=== PATIENT | male | born 1980 | race American Indian/Alaskan Native ===

== ENCOUNTER 2018-05-04 07:12 | Emergency (ER) | payer BC, OTHER ==
[~2018-05-04] VITALS: Ht 177.8 cm; Wt 131.5 kg
--- OUTSIDE RECORDS SUMMARY | ~2018-05-04 | XMS | Clinical Summary ---
Demographics + + + | Address | [address] | | | [place] [address] | + + + | Home Phone | | + + + | Preferred Language | Unknown | + + + | Marital Status | Single | + + + | Uatsdin Affiliation | Unknown | + + + | Race | Unknown | + + + | Ethnic Group | Unknown | + + + Author + + + | Author | [facility] | + + + | Organization | [facility] | + + + | Address | Unknown | + + + | Phone | Unavailable | + + + Support + + + + + | Name | Relationship | Address | Phone | + + + + + | Kalpana Mccartney | ECON | [address] | | | | | [place] | | | | | [address] | | + + + + + Care Team Providers + +------+ + | Care Transportation Department Supervisor Name | Role | Phone | + +------+ + | Medicine, [place] | PP | Unavailable | | Family | | | + +------+ + Allergies Not on File Current Medications Not on file Active Problems Not on file Social History + +-------+ +--------+------+ | Tobacco [...] on file | | + + + Plan of Treatment Not on file Results Not on filefrom Last 3 Months"
--- OUTSIDE RECORDS SUMMARY | ~2018-05-04 | XMS | Clinical Summary ---
Demographics + + + | Address | [address] | | | [place] [address] | + + + | Home Phone | | + + + | Preferred Language | Unknown | + + + | Marital Status | Single | + + + | Baptism Affiliation | Unknown | + + + | Race | Unknown | + + + | Ethnic Group | Unknown | + + + Author + + + | Author | [facility] | | | and [place] | + + + | Organization | [facility] | | | and [place] | + + + | Address | Unknown | + + + | Phone | Unavailable | + + + Support + + +---------+ + | Name | Relationship | Address | Phone | + + +---------+ + | MARISELA DONAHUE | ECON | Unknown | | + + +---------+ + Care Team Providers + +------+ + | Care Manager Psychiatry Name | Role | Phone | + +------+ + | Seng Knowles PA-C | PP | | + +------+ + Allergies No Known Allergies Current Medications + + +-------+---------+------+------+-------+ | Prescription | Sig. | Disp. | Refills | Star | End | Statu | | | | | | t | Date | s | | | | | | Date | | | + + +-------+---------+------+------+-------+ | naproxen | Take 500 mg by mouth | | | | | Activ | | (NAPROSYN) 500 mg | 2 times daily (with | | | | | e | | tablet | breakfast & | | | | | | | | dinner). | | | | | | + + +-------+---------+------+------+-------+ | metFORMIN | Take 500 mg by mouth | | | | | Activ | | (GLUCOPHAGE) 500 mg | daily (with | | | | | e | | tablet | breakfast). | | | | | | + + +-------+---------+------+------+-------+ | UNABLE TO FIND | Med Name: Resmed | | | | | Activ | | | AirSense 10 autoset | | | | | e | | | CPAP: 6-20cm while | | | | | | | | sleeping. | | | | | | + + +-------+---------+------+------+-------+ Active Problems + + + | Problem | Noted Date | + + + | JEANCARLOS (obstructive sleep apnea) | | + + + | Obesity | | + + + | Type 2 diabetes mellitus (HCC) | | + + + Family History [...] | | | + +---+---+---+ + + + | Sex Assigned at | Date Recorded | | | | + + + | Not on file | | + + + Last Filed Vital Signs + + + + | Vital Sign | Reading | Time Taken | + + + + | Blood Pressure | 144/70 | 07/23/20161502 PST | + + + + | Pulse | 90 | 07/23/20161502 PST | + + + + | Temperature | - | - | + + + + | Respiratory Rate | 16 | 07/23/20161502 PST | + + + + | Oxygen Saturation | 97% | 07/23/20161502 PST | + + + + | Inhaled Oxygen | - | - | | Concentration | | | + + + + | Weight | 139.1 kg (306 lb 9.6 | 07/23/2016 1503 PST | | | oz) | | + + + + | Height | 177.8 cm (5' 10") | 05/21/2016 1325 PST | + + + + | Body Mass Index | 43.99 | 07/23/2016 1503 PST | + + + + Plan of Treatment + + + + + | Health Maintenance | Due Date | Last Done | Comments | + + + + + | Diabetic Eye Exam | | | | | | 8 | | | + + + + + | Diabetic Foot Exam | | | | | | 8 | | | + + + + + | Hemoglobin A1c Q3 | | | | | Months | 8 | | | + + + + + | Vaccine: | | | | | Dtap/Tdap/Td (1 - | 9 | | | | Tdap) | | | | + + + + + | Vaccine: | | | | | Pneumococcal 19-64 | 9 | | | | (PPSV23 only) Medium | | | | | Risk (1 of 1 - | | | | | PPSV23) | | | | + + + + + | Microalbumin | | | | | Screening | 5 | | | + + + + + | Vaccine: Influenza | | | | | (#1) | 8 | | | + + + + + Results Not on filefrom Last 3 Months Insurance + +--------+ +--------+-------+---------+ | Payer | Benefi | Subscriber | Type | Phone | Address | | | t Plan | ID | | | | | | / | | | | | | | Group | | | | | + +--------+ +--------+-------+---------+ | BCBS | BCBS | [id number] | PPO | | | | | [place] | | | | | | | L FEP | | | | | + +--------+ +--------+-------+---------+ | HEALTH | IHS | [id number] | Indemn | | | | SERVICE | YELLOW | | ity | | | | | HAWK | | | | | + +--------+ +--------+-------+---------+ + +--------+ +--------+ + + | Guarantor Name | Accoun | Relation to | Date | Phone | Billing Address | | | t Type | Patient | of | | | | | | | | | | + +--------+ +--------+ + + | JEOVANNY BASURTO | Person | Self | [birth year] | Home: | [address] | | | al/Fam | | 1980 | [phone] | [place] [address] | | | mat | | | [phone] | | + +--------+ +--------+ + +
--- OUTSIDE RECORDS SUMMARY | ~2018-05-04 | XMS | Clinical Summary ---
Demographics + + + | Address | [address] | | | [place] [address] | + + + | Home Phone | | + + + | Preferred Language | Unknown | + + + | Marital Status | Single | + + + | Scientologist Affiliation | Unknown | + + + | Race | Unknown | + + + | Ethnic Group | Unknown | + + + Author + + + | Author | [facility] | | | and [place] | + + + | Organization | [facility] | | | and [...] Team Providers + +------+ + | Care Life Skills Trainer Name | Role | Phone | + [...] +--------+ +--------+-------+---------+ | BCBS | BCBS | [id number] | PPO | | | | | [place] | | | | | | | L FEP | | | | | + +--------+ +--------+-------+---------+ | HEALTH | IHS | [id number] | Indemn | | | | SERVICE [...] | Self | [birth year] | Home: | [address] | | | al/Fam | | 1980 | [phone] | [place] [address] | | | mat | | | [phone] | | + +--------+ +--------+ + +
--- OUTSIDE RECORDS SUMMARY | ~2018-05-04 | XMS | Clinical Summary ---
Demographics + + + | Address | [address] | | | [place] [address] | + + + | Home Phone | | + + + | Preferred Language | Unknown | + + + | Marital Status | Single | + + + | Anabaptism Affiliation | Unknown | + + + | Race | Unknown | + + + | Ethnic Group | Unknown | + + + Author + + + | Author | [facility] | + + + | Organization | [facility] | + + + | Address | Unknown | + + + | Phone | Unavailable | + + + Support + + + + + | Name | Relationship | Address | Phone | + + + + + | Kalpana Mccartney | ECON | [address] | | | | | [place] | | | | | [address] | | + + + + + Care Team Providers + +------+ + | Care Headlight Adjuster Name | Role | Phone | + +------+ + | Medicine, [place] | PP | Unavailable | | Family [...]
[~2018-05-04 07:12] MED LIST: ACETAMINOPHEN325 M1; AMOXICILLIN500 MG; CLINDAMYCIN HC300 MG PO; CRUTCH1 EACH; GLIPIZIDE XL5 MG PO; IBUPROFEN400 MG; MACROBID 100 M100 MG PO; METRONIDAZOLE500 MG; NAPROXEN500 MG PO; NORCO 5-325 TA1 EACH; PERCOCET 5-3251 EACH PO; VICODIN 5-3001 EACH PO
[2018-05-04] MEDS ORDERED: METHOCARBAMOL500 MG PO (10:33)
[2018-05-04] MEDS ORDERED: PREDNISONE20 MG PO (10:33)
== END 2018-05-04 10:45 | disposition home or self-care (01) ==
LOC: ED 07:12
DX: M54.41 Lumbago with sciatica, right side (principal); E11.9 Type 2 diabetes mellitus without complications; Z79.899 Other long term (current) drug therapy
CPT/HCPCS: 96372; 99283; J1885; J7512

== ENCOUNTER 2019-08-24 16:22 | Emergency (ER) | payer BC, OTHER ==
[~2019-08-24] VITALS: Ht 177.8 cm; Wt 119.3 kg
[~2019-08-24 16:22] MED LIST changes: +METHOCARBAMOL500 MG PO; +PREDNISONE20 MG PO
[2019-08-24] MEDS ORDERED: LOSARTAN POTASS50 MG PO (16:41)
[2019-08-24] MEDS ORDERED: FENOFIBRATE54 MG PO (16:41)
[2019-08-24] MEDS ORDERED: IBUPROFEN600 MG PO (16:41)
[2019-08-24] MEDS ORDERED: METFORMIN HCL500 M1 PO (16:41)
[2019-08-24] MEDS ORDERED: ONGLYZA5 MG PO (16:42)
[2019-08-24] MEDS ORDERED: COLCHICINE0.6 M1 PO (17:24)
== END 2019-08-24 17:57 | disposition home or self-care (01) ==
LOC: ED 16:22
DX: S96.911A Strain of unspecified muscle and tendon at ankle and foot level, right foot, initial encounter (principal); X50.9XXA Other and unspecified overexertion or strenuous movements or postures, initial encounter; E11.9 Type 2 diabetes mellitus without complications; Z79.899 Other long term (current) drug therapy; Z79.84 Long term (current) use of oral hypoglycemic drugs
CPT/HCPCS: 99283; J1100

== ENCOUNTER 2020-01-05 18:40 | Inpatient (IN) | payer BC, OTHER ==
[~2020-01-05] VITALS: Ht 177.8 cm; Wt 115.6 kg
--- OUTSIDE RECORDS SUMMARY | ~2020-01-05 | XMS | Encounter Summary ---
Demographics + + + | Address | [address] | | | [place] [address] | + + + | Home Phone | | + + + | Preferred Language | Unknown | + + + | Marital Status | Single | + + + | Evangelical Affiliation | Unknown | + + + | Race | Unknown | + + + | Ethnic Group | Unknown | + + + Author + + + | Author | [facility] | | | and [place] | + + + | Organization | [facility] | | | and [place] | + + + | Address | Unknown | + + + | Phone | Unavailable | + + + Support + + +---------+ + | Name | Relationship | Address | Phone | + + +---------+ + | Kalpana Mccartney | ECON | Unknown | | + + +---------+ + Care Team Providers + +------+ + | Care Screener Operator Name | Role | Phone | + +------+ + | Seng Knowles PA-C | PCP | | + +------+ + Reason for Visit + + + | Reason | Comments | + + + | CPAP Follow Up | Sleep Resource | + + + Encounter Details +--------+ + + + + | Date | Type | Department | Care Team | Description | +--------+ + + + + | 05/21/ | Clinical | [facility] | Maximo Murguia | JEANCARLOS (obstructive | | 2016 | Support | SLEEP DISORDER [address] | MD [address] | sleep apnea) | | | | [address] [place] | [address] [place] | (Primary Dx) | | | | [place] [address] | [place] [address] | | | | | [phone] | [phone] | | | | | | | | +--------+ + + + + Social History + +-------+ +--------+------+ | Tobacco Use | Types | Packs/Day | Years | Date | | | | | Used | | + +-------+ +--------+------+ | Never Smoker | | | | | + +-------+ +--------+------+ + +---+---+---+ | Smokeless Tobacco: | | | | | Never Used | | | | + +---+---+---+ + + +---------+ + | Alcohol Use | Drinks/Week | oz/Week | Comments | + + +---------+ + | Not Asked | 0 Standard drinks | 0.0 | once a week 6 drinks | | | or equivalent | | | + + +---------+ + + + + | Sex Assigned at | Date Recorded | | | | + + + | Not on file | | + + + documented as of this encounter Last Filed Vital Signs + + + + + | Vital Sign | Reading | Time Taken | Comments | + + + + + | Blood Pressure | 118/70 | 05/21/2016 1:25 PM | | | | | PST | | + + + + + | Pulse | 93 | 05/21/2016 1:25 PM | | | | | PST | | + + + + + | Temperature | - | - | | + + + + + | Respiratory Rate | 14 | 05/21/2016 1:25 PM | | | | | PST | | + + + + + | Oxygen Saturation | 96% | 05/21/2016 1:25 PM | | | | | PST | | + + + + + | Inhaled Oxygen | - | - | | | Concentration | | | | + + + + + | Weight | 139.4 kg (307 lb 6.4 | 05/21/2016 1:25 PM | | | | oz) | PST | | + + + + + | Height | 177.8 cm (5' 10") | 05/21/2016 1:25 PM | | | | | PST | | + + + + + | Body Mass Index | 44.11 | 05/21/2016 1:25 PM | | | | | PST | | + + + + + documented in this encounter Progress Notes Johny Wright rollApp Tech - 05/21/2016 1:47 PM PSTFormatting of this note migh t be different from the original. Clinical Sleep Support Visit Patient:Allen Colby Date of :1980 Encounter Date: 05/20/2016 Reason for visit: Chief Complaint Patient presents with CPAP Follow Up Sleep Resource The patient was last seen in our clinic on 05/01/2016 referred by Satnam Knowles PA-C to our cli mark and seen by Dr. Murguia. PAP was ordered on 05/01/2016 from [facility] and patient has been wear ing for 20 out of 20 nights. Patient is wearing the ResMed S-10 auto PAP with settings of 6- 20, wearing the F-10 Full Face mask. ~ Vital signs were: BP 118/70 mmHg | Pulse 93 | Resp 14 | Ht 1.778 m (5' 10") | Wt 139.436 kg (307 lb 6.4 oz) | BMI 44.11 kg/m2 | SpO2 96% ~ Patient is doing good, complaint of mask seal, but fit check showed a good fit and I adju sted some. Good compliance and motivation, he admitted to sleeping less and feeling better. ~ Overall leak is 13.2 ~ Compliance >4 hours =90% with AHI of 0.5 ~ Average daily of 7:24 Original date of study was on 04/03/2016 that showed and AHI of 9.9 with a O2 Rony of 86% w ith 32.3 minutes < 90%. Sleep hygiene reviewed with the patient included - Not sleeping with the TV on and caffeine use. Plan for continuous PAP use: 1. Wear PAP any time you are sleeping 2. Continue with PAP indefinitely 3. Follow up with Hong MACIAS in 3 weeks with equipment Johny Wright RPSGT CSE doc umented in this encounter Plan of Treatment Not on filedocumented as of this encounter Visit Diagnoses + + | Diagnosis | + + | JEANCARLOS (obstructive sleep apnea) - Primary Obstructive sleep apnea (adult) (pediatric) | + + documented in this encounter
--- OUTSIDE RECORDS SUMMARY | ~2020-01-05 | XMS | Encounter Summary ---
Demographics + + + | Address | [address] | | | [place] [address] | + + + | Home Phone | | + + + | Preferred Language | Unknown | + + + | Marital Status | Single | + + + | Shinto Affiliation | Unknown | + + + | Race | Unknown | + + + | Ethnic Group | Unknown | + + + Author + + + | Author | [facility] | | | and [place] | + + + | Organization | [facility] | | | and [place] | [...] Team Providers + +------+ + | Care Hand Mica Plate Layer Name | Role | Phone | + +------+ + PCP | Unavailable | + +------+ + Encounter Details +--------+ + + + + | Date | Type | Department | Care Team | Description | +--------+ + + + + | 01/09/ | Hospital | [facility] | Conversion | | | 2004 - | Encounter | [facility] [address] | Transaction, | | | | | [address] | Provider Unknown | | | 01/10/ | | [place] | [phone] | | | 2004 | | [address] | | | | | | [phone] | | | +--------+ + + + + Social History + +-------+ +--------+------+ | Tobacco Use | Types | Packs/Day | Years | Date | | | | | Used | | + +-------+ +--------+------+ | Never Assessed | | | | | + +-------+ +--------+------+ + + + | Sex Assigned at | Date Recorded | | | | + + + | Not on file | | + + + documented as of this encounter Plan of Treatment Not on filedocumented as of this encounter Visit Diagnoses Not on filedocumented in this encounter"
--- OUTSIDE RECORDS SUMMARY | ~2020-01-05 | XMS | Clinical Summary ---
Demographics + + + | Address | [address] | | | [place] [address] | + + + | Home Phone | | + + + | Preferred Language | Unknown | + + + | Marital Status | Single | + + + | Roman Catholic Affiliation | Unknown | + + + | Race | Unknown | + + + | Ethnic Group | Unknown | + + + Author + + + | Author | [facility] | | | and [place] | + + + | Organization | [facility] | | | and [...] Team Providers + +------+ + | Care Senior Core Java Developer Name | Role | Phone | + +------+ + | Seng Knowles PA-C | PCP | | + +------+ + Allergies No Known Allergies Medications + + + +---------+------+------+-------+ | Medication | Sig | Dispensed | Refills | Star | End | Statu | | | | | | t | Date | s | | | | | | Date | | | + + + +---------+------+------+-------+ | naproxen | Take 500 mg by mouth | | 0 | | | Activ | | (NAPROSYN) 500 mg | 2 times daily (with | | | | | e | | tablet | breakfast & | | | | | | | | dinner). | | | | | | + + + +---------+------+------+-------+ | metFORMIN | Take 500 mg by mouth | | 0 | | | Activ | | (GLUCOPHAGE) 500 mg | daily (with | | | | | e | | tablet | breakfast). | | | | | | + + + +---------+------+------+-------+ | UNABLE TO FIND | Med Name: Resmed | | 0 | | | Activ | | | AirSense 10 autoset | | | | | e | | | CPAP: 6-20cm while | | | | | | | | sleeping. | | | | | | + + + +---------+------+------+-------+ Active Problems + + + | Problem | Noted Date | + + + | JEANCARLOS (obstructive sleep apnea) | | + + + | Obesity | | + + + | Type 2 diabetes mellitus | | + + + Family History + +------+ + + | Relation | Name | Status | Comments | + +------+ + + | Father | | | pneumonia | | | | (Age | | | | | 55) | | + +------+ + + | Mother | | Alive | snore | + +------+ + + | Sister | | Alive | | + +------+ + + | Sister | | Alive | | + +------+ + + Social History + +-------+ +--------+------+ [...] on file | | + + + Last Filed Vital Signs + + + + + | Vital Sign | Reading | Time Taken | Comments | + + + + + | Blood Pressure | 144/70 | 07/23/2016 3:03 PM | | | | | PST | | + + + + + | Pulse | 90 | 07/23/2016 3:03 PM | | | | | PST | | + + + + + | Temperature | - | - | | + + + + + | Respiratory Rate | 16 | 07/23/2016 3:03 PM | | | | | PST | | + + + + + | Oxygen Saturation | 97% | 07/23/2016 3:03 PM | | | | | PST | | + + + + + | Inhaled Oxygen | - | - | | | Concentration | | | | + + + + + | Weight | 139.1 kg (306 lb 9.6 | 07/23/2016 3:03 PM | | | | oz) | PST | | + + + + + | Height | 177.8 cm (5' 10") | 05/21/2016 1:25 PM | | | | | PST | | + + + + + | Body Mass Index | 43.99 | 05/21/2016 1:25 PM | | | | | PST | | + + + + + Plan of Treatment + + +-------+ + | Health Maintenance | Due Date | Last | Comments | | | | Done | | + + +-------+ + | Vaccine: | | | | | Dtap/Tdap/Td (1 - | 9 | | | | Tdap) | | | | + + +-------+ + | Vaccine: Influenza | | | | | (#1) | 0 | | | + + +-------+ + Results Not on filefrom Last 3 Months Insurance + +--------+ +--------+-------+---------+--------+ | Payer | Benefi | Subscriber | Effect | Phone | Address | Type | | | t Plan | ID | kelsey | | | | | | / | | Dates | | | | | | Group | | | | | | + +--------+ +--------+-------+---------+--------+ | BCBS | BCBS | [id number] | 07/01/19 | | | PPO | | | [place] | | 16-Pre | | | | | | L FEP | | sent | | | | + +--------+ +--------+-------+---------+--------+ | [facility] | IHS | [id number] | | | | Indemn | | SERVICE | YELLOW | | 016-Pr | | | ity | | | HAWK | | esent | | | | + +--------+ +--------+-------+---------+--------+ + +--------+ +--------+ + + | Guarantor Name | Accoun | Relation to | Date | Phone | Billing Address | | | t Type | Patient | of | | | | | | | | | | + +--------+ +--------+ + + | Allen Colby | Person | Self | [birth year] | | [address] | | | al/Fam | | 1980 | [phone] | [place] [address] | | | mat | | | 9 (Home) | | + +--------+ +--------+ + + Advance Directives + + + + + | Type | Date Recorded | Patient | Explanation | | | | Desk Monitor | | + + + + + | Power of | | | | | Music Minister | | | | + + + + + | Advance | | | | | Directive | | | | + + + + +
--- OUTSIDE RECORDS SUMMARY | ~2020-01-05 | XMS | Encounter Summary ---
Demographics + + + | Address | [address] | | | [place] [address] | + + + | Home Phone | | + + + | Preferred Language | Unknown | + + + | Marital Status | Single | + + + | Mormonism Affiliation | Unknown | + + + | Race | Unknown | + + + | Ethnic Group | Unknown | + + + Author + + + | Author | [facility] | | | and [place] | + + + | Organization | [facility] | | | and [place] | [...] Team Providers + +------+ + | Care Net Software Architect Name | Role | Phone | + +------+ + | Seng Knowles PA-C | PCP | | + +------+ + Encounter Details +--------+ + + + + | Date | Type | Department | Care Team | Description | +--------+ + + + + | 10/21/ | Documentati | [facility] | Hong Shirley PA | | | 2018 | on | SLEEP DISORDER [address] | [address] | | | | | [address] [place] | [place] | | | | | [place] [address] | [address] | | | | | [phone] | | | +--------+ + + + [...] + + documented as of this encounter Progress Hong Louis PA - 10/21/2017 3:33 PM PDTAllen was last seen in our office on 07/23/2016. He did not cancel or show up for his appointment on 10/21/2017. This was his first no-show. He was doing well with his CPAP compliance at his last appointment. He has mild apnea. We will attempt to reschedule this appointment. Hong Shirley PA-C docume nted in this encounter Plan of Treatment Not on filedocumented as of this encounter Visit Diagnoses Not on filedocumented in this encounter"
--- OUTSIDE RECORDS SUMMARY | ~2020-01-05 | XMS | Encounter Summary ---
Demographics + + + | Address | [address] | | | [place] [address] | + + + | Home Phone | | + + + | Preferred Language | Unknown | + + + | Marital Status | Single | + + + | Mormonism Affiliation | Unknown | + + + | Race | Unknown | + + + | Ethnic Group | Unknown | + + + Author + + + | Author | [facility] | | | and [place] | + + + | Organization | [facility] | | | and [place] [...] Team Providers + +------+ + | Care Egg Factory Worker Name | Role | Phone | + +------+ + PCP | Unavailable | + +------+ + Encounter Details +--------+ + + + + | Date | Type | Department | Care Team | Description | +--------+ + + + + | 04/03/ | Hospital | [facility] | | | | 2000 | Encounter | MED CTR XRAY [address] | | | | | | [place] | | | | | | [place] [address] | | | | | | [phone] | | | +--------+ + + + [...]
--- OUTSIDE RECORDS SUMMARY | ~2020-01-05 | XMS | Encounter Summary ---
Demographics + + + | Address | [address] | | | [place] [address] | + + + | Home Phone | | + + + | Preferred Language | Unknown | + + + | Marital Status | Single | + + + | Latter Day Affiliation | Unknown | + + + | Race | Unknown | + + + | Ethnic Group | Unknown | + + + Author + + + | Author | [facility] | | | and [place] | + + + | Organization | [facility] | | | and [place] [...] Team Providers + +------+ + | Care Animal Husbandry Teacher Name | Role | Phone | + +------+ + PCP | Unavailable | + +------+ + Encounter Details +--------+ + + + + | Date | Type | Department | Care Team | Description | +--------+ + + + + | 04/03/ | Hospital | [facility] | | | | 2000 | Encounter | MED CTR XRAY [address] | | | | | | [place] | | | | | | [place] [address] | | | | | | [phone] | | | +--------+ + + + [...]
--- OUTSIDE RECORDS SUMMARY | ~2020-01-05 | XMS | Encounter Summary ---
Demographics + + + | Address | [address] | | | [place] [address] | + + + | Home Phone | | + + + | Preferred Language | Unknown | + + + | Marital Status | Single | + + + | Quaker Affiliation | Unknown | + + + | Race | Unknown | + + + | Ethnic Group | Unknown | + + + Author + + + | Author | [facility] | | | and [place] | + + + | Organization | [facility] | | | and [place] [...] Team Providers + +------+ + | Care Records Management Technician Name | Role | Phone | + +------+ + | Seng Knowles PA-C | PCP | | + +------+ + Reason for Referral Evaluate & Treat (Routine) +--------+ + + + + + | Status | Reason | Specialty | Diagnoses / | Referred By | Referred To | | | | | Procedures | Contact | Contact | +--------+ + + + + + | Closed | Specialty | Sleep | Diagnoses | [facility] | [facility] | | | Services | Medicine | JEANCARLOS | Maximo Robledo | [place] [address] | | | Required | | (obstructive | MD Marlen Olivera | [place] | | | | | sleep | João Ayers | [place], | | | | | apnea) | [facility] | [place] [address] | | | | | Procedures | [facility], [place] | Phone: | | | | | [place] SLEEP | [address] | [phone] | | | | | STUDY, | Phone: | Fax: | | | | | UNATTENDED, | [phone] | [phone] | | | | | SIMUL RECORD | Fax: | | | | | | HR/O2 | [phone] | | | | | | SAT/RESP | | | | | | | FLOW/RESP | | | | | | | EFF HST | | | | | | | Scheduled on | | | | | | | 04/03 | | | | | | | (Mary) | | | +--------+ + + + + + Reason for Visit +---------+ + | Reason | Comments | +---------+ + | Consult | | +---------+ + | Snoring | | +---------+ + Evaluate & Treat (Routine) +--------+--------+ + + + + | Status | Reason | Specialty | Diagnoses / | Referred By | Referred To | | | | | Procedures | Contact | Contact | +--------+--------+ + + + + | Closed | | Internal | Diagnoses | Eleni, | [place], | | | | Medicine - | Obstructive | Seng Stone, | Maximo Robledo | | | | Sleep | sleep apnea | [place] [address] | MD [address] | | | | Medicine / | (adult) | [facility] | João Ayers | | | | Sleep | (pediatric) | WAY | [facility] | | | | Medicine | CONSULT [address] | [place], | [place], [place] | | | | | Procedures | [place] [address] | [address] Phone: | | | | | NEW PATIENT | Phone: | [phone] | | | | | | [phone] | Fax: | | | | | | Fax: | [phone] | | | | | | [phone] | | +--------+--------+ + + + + Encounter Details +--------+---------+ + + + | Date | Type | Department | Care Team | Description | +--------+---------+ + + + | 03/20/ | Office | [facility] | Maximo Murguia | JEANCARLOS (obstructive | | 2016 | Visit | SLEEP DISORDER [address] | MD Jarod [address] | sleep apnea) | | | | [address] [place] | [address] [place] | (Primary Dx); | | | | [place] [address] | [place] [address] | Obesity, unspecified | | | | [phone] | [phone] | obesity severity, | | | | | | unspecified obesity | | | | | | type; Type 2 | | | | | | diabetes mellitus | | | | | | without complication | | | | | | ([facility]) | +--------+---------+ + + + Social History + +-------+ [...] + + + | Blood Pressure | 112/78 | 03/20/2016 10:52 AM | | | | | PDT | | + + + + + | Pulse | 70 | 03/20/2016 10:52 AM | | | | | PDT | | + + + + + | Temperature | - | - | | + + + + + | Respiratory Rate | 18 | 03/20/2016 10:52 AM | | | | | PDT | | + + + + + | Oxygen Saturation | 94% | 03/20/2016 10:52 AM | | | | | PDT | | + + + + + | Inhaled Oxygen | - | - | | | Concentration | | | | + + + + + | Weight | 138.6 kg (305 lb 9.6 | 03/20/2016 10:52 AM | | | | oz) | PDT | | + + + + + | Height | 177.8 cm (5' 10") | 03/20/2016 10:52 AM | | | | | PDT | | + + + + + | Body Mass Index | 43.85 | 03/20/2016 10:52 AM | | | | | PDT | | + + + + + documented in this encounter Patient Instructions Patient Instructions Maximo Murguia Jr., MD - 03/20/2016 11:52 AM PDTFormatting of this n ote might be different from the original. What Are Snoring and Obstructive Sleep Apnea? If you ve ever had a stuffed-up nose, you know the feeling of trying to breathe through a very narrow passageway. This is what happens in your throat when you snore. While you sleep , structures in your throat partially block your air passage, making the passage narrow and hard to breathe through. If the entire passage becomes blocked and you can t breathe at al l, you have sleep apnea. Air moves freely through the nose, mouth and throat. Snoring If your throat structures are too large or the muscles relax too much during sleep, the air passage may be partially blocked. As air from the nose or mouth passes around this blockage , the throat structures vibrate, causing the familiar sound of snoring. At times, this sound can be so loud that snorers wake up others, or even themselves, during the night. Snoring g ets worse as more and more of the air passage is blocked. Air is blocked in the back of the mouth and throat. Obstructive sleep apnea If the structures completely block the throat, air can t flow to the lungs at all. This i s called apnea (meaning no breathing ). Since the lungs aren t getting fresh air, the brain tells the body to wake up just enough to tighten the muscles and unblock the air pass age. With a loud gasp, breathing begins again. This process may be repeated over and over ag ain throughout the night, making your sleep fragmentedwith a center hole reamer stage of sleep. Even though you do not remember waking up many times during the night to a center hole reamer sleep, you fee l tired the next day. The lack of sleep and fresh air can also strain your lungs, heart, and other organs, leading to problems such as high blood pressure, heart attack, or stroke. Air may not be able to move freely past a deviated septum or swollen turbinates. Problems in the nose and jaw Problems in the structure of the nose may obstruct breathing. A crooked (deviated) septum o r swollen turbinates can make snoring worse or lead to apnea. Also, a receding jaw may make the tongue sit too far back, so it s more likely to block the airway when you re asleep. The [employer]. [address] [place] [id number]. All righ ts reserved. This information is not intended as a substitute for professional medical care. Always follow your healthcare professional's instructions. Monitoring Your Sleep: Home Sleep Study A home sleep study tracks and records body functions while you re asleep in your own bed. The results of the study will helpdiagnoseyour sleep problem and plan your treatment. How a home sleep study works During a sleep study, sensors attached to your body measure your breathing, oxygen level, a nd other body functions. You will be shown how to attach the sensors to your body. You may a lso have help from a endoscopic technician. At bedtime you plug the sensors into a small computer and t urn it on. In the morning, you will remove the sensors and return the computer so the result s can be studied. Tips You ll be given instructions for how to set up the sensors and the computer. Doing so christopher l be simple. For best results: Go through the instructions during the day so you ll be ready to use the equipment at bedtime. Stick to your normal routine. Ask your healthcare provider if you should do anything dif ferently the night of the study. If you get up during the night, reconnect the sensors to the computer or to yourself cor rectly. Get as many hours of sleep as you can. Getting the results The results of your sleep study need to be scored and interpreted. Once this is done, your healthcare providerwill discuss the findings with you. The sleep study results will show w hether you have apnea. This is when your breathing stops temporarily many times during the n ight, awakening you briefly. It can also tell how severe the apnea is. The findings help y our healthcare providerknow which treatment or treatments may be the right ones for you. [employer] [address] [place] [address]. All righ ts reserved. This information is not intended as a substitute for professional medical care. Always follow your healthcare professional's instructions. Mouthpieces for Sleep Apnea For simple snoring or mild to moderate apnea, a special mouthpiece may help. A dental specjudson peralta works with your healthcare providerto build and fit a mouthpiece just for you. A fol low-up sleep study checks how well the device is working for you. Mouthpieces are also castellon d oral appliances. Moving the jaw and tongue forward with a mouthpiece can open the airway to reduce sleep cnc grinder ea. Moving the jaw forward Most mouthpieces move the jaw and tongue forward. That keeps the tongue from blocking the a irway. Mouthpieces can work well, but they are not for everyone. Work with your healthcare p moraima to get a mouthpiece that fits just right for you. Oral appliances are usually custom made for you by a dental professional. And, avoid bspy-myi-hijvuqy mouthpieces they oft en do not work. Tips To have the most success with your mouthpiece, keep these tips in mind: It will take some time to get used to wearing a mouthpiece. At first it may feel uncomfo rtable or make your mouth water. If these problems last, tell your healthcare provider. Expect several rounds of adjustments to get the mouthpiece to fit and work just right fo r you. Mouthpieces don t cure the problems that cause snoring or sleep apnea. So you need to use your mouthpiece all night, every night. Follow your healthcare provider s instructions for keeping the mouthpiece clean. When you re not wearing your mouthpiece, store it in its case. [id number] [employer] [address] [place] [address]. All righ ts reserved. This information is not intended as a substitute for professional medical care. Always follow your healthcare professional's instructions. documented in this encounter Progress Notes Maximo Murguia Jr., MD - 03/20/2016 11:11 AM PDTFormatting of this note might be differen t from the original. Lenore Portillo [facility] [place] [address] Ref: Seng Knowles PA-C CC: Chief Complaint Patient presents with Consult Snoring History of the Present Illness:This is a 35 year old male who is referred for sleep medicin e consultation by Satnam Knowles PA-C because of possible obstructive sleep apnea. Other signifi cant medical issues include AODM, Obesity. [facility] are [facility]. The patient is interviewed and examined. He works at [employer] from 10am-6pm. Bedtime is usually about 11pm and rise time is about 9am. He estimates a latency to sleep o nset of about 15 minutes. He has nocturia about 2-3 times at night and most of the time he g ets back to sleep easily. He gets nocturnal heartburn frequently (tomatoes). He rarely has n ight sweats. He awakens every morning with a dry mouth, nasal/sinus congestion, and headache s. He dreams infrequently and he denies hypnagogic hallucinations. He isn't a sleep walker. He denies dream enactment while asleep. He denies sleep paralysis. He denies restlessness in his legs at night. He snores at night. He has awakened himself gasping for air and snorting. Alcohol seems to make this worse. He tries not to sleep supine because he doesn't sleep well supine. In the daytime he feels fatigued and a bit tired. 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 H clarissa denies cataplexy. He consumes very little caffeine. He gets drowsy driving. Past Medical History: has a past medical history of Type 2 diabetes mellitus (HCC); Obesit y; JEANCARLOS (obstructive sleep apnea); and Rotator cuff arthropathy, right. has past surgical history that includes low back surgery (2003). No Known Allergies Current Outpatient Prescriptions Medication Sig Dispense Refill metFORMIN (GLUCOPHAGE) 500 mg tablet Take 500 mg by mouth daily (with breakfast). naproxen (NAPROSYN) 500 mg tablet Take 500 mg by mouth 2 times daily (with breakfast & dinner). No current facility-administered medications for this visit. Past Surgical History Procedure Laterality Date Low back surgery 2003 Family Medical History: family history is not on file. indicated that his mother is alive. He indicated that his father is . He indicated that both of his sisters are alive. Social History: Social History Social History Marital Status: Single Spouse Name: N/A Number of Children: N/A Years of Education: 12 Occupational History [employer] Social History Main Topics Smoking status: Never Smoker Smokeless tobacco: Never Used Alcohol Use: None Comment: once a week 6 drinks Drug Use: No Sexual Activity: Partners: Female Other Topics Concern None Social History Narrative Lives in house in [place] in house by himself. Review of Systems: Constitutional: Denies unexplained fevers, chills, sweats. Weight fluctuates Eyes:Denies sudden loss of vision, diplopia, blurred vision. ENT: Denies loss of hearing, vertigo, nasal or sinus congestion, bleeding gums or poor de ntal repair. Card:Denies exertional substernal chest heaviness, leg pain. Denies palpitations, orthopn ea, ankle edema, presyncope. Resp: Denies cough, wheezing, asthma, hemoptysis GI: Denies nausea, vomiting, abdominal pain, diarrhea, constipation, hematochezia. : Denies dysuria, pyuria, hematuria, frequency, incontinence MS: Right shoulder pain and some bilateral knee pain. Neuro: Denies seizures, strokes, loss of consciousness, syncope. Has had concussion. Psych: Denies: depression, panic, past history physical or sexual abuse. Some anxiety. Tr auma from deaths in his family. Endocrine: Denies heat or cold intolerance Heme: Denies easy bruising or prolonged bleeding. No history of transfusions Allergic/Immunologic: Denies seasonal allergies PE: BP 112/78 mmHg | Pulse 70 | Resp 18 | Ht 1.778 m (5' 10") | Wt 138.619 kg (305 lb 9.6 o z) | BMI 43.85 kg/m2 | SpO2 94% Gen: obese and not in acute distress HEENT:Head: Normocephalic, no lesions, without obvious abnormality. Eye: Normal external eye, conjunctiva, lids cornea, PRISCILA. Nose: Normal external nose, mucus membranes and septum. Pharynx: Dental Hygiene adequate. Normal buccal mucosa. Mallampati 3-4. Neck / Thyroid: Supple, no masses, nodes, nodules or enlargement. Pulm: lungs clear to auscultation Card: regular rate and rhythm, S1, S2 normal, no murmur, click, rub or gallop GI: soft and normal bowel sounds : Not examined Rectal: Not Examined Ext: peripheral pulses normal, no pedal edema, no clubbing or cyanosis Skin:no rashes Neuro:Grossly normal Psych:age appropriate and casually dressedoriented to time, place and person, mood and aff ect are within normal limits, pt is a good historian; no memory problems were noted Heme: No cervical LN Questionnaires Review: The score of 2 on the Marengo Sleepiness scale suggests insignifican t excessive daytime sleepiness. The score of 16 on the Insomnia Severity Scale suggests that the patient has significant dissatisfaction with the quality of sleep. The score of 12 on t he Cool Depression Inventory is consistent with minimal depression. The score of 6 on the Be ck Anxiety Inventory suggests minimal recognized anxiety. The SF36v2 suggests moderate self assessed impairment in the General Health subscale; mild self assessed impairment in subscal es Body Pain, Social Function, Role Emotional, Mental Health; no self assessed impairment in subscales Physical Function, Role Physical, Vitality. He scores just above the mean on the Physical Component Scale and just over 0.5 standard deviations below the mean on the Mental Component Scale. Assessment: JEANCARLOS: I suspect that the patient has clinically significant and possibly severe JEANCARLOS. I have discussed in detail the pathophysiology of Obstructive Sleep Apnea with the sulaiman ent. I've discussed that during NREM sleep the skeletal muscles relax and in REM sleep the s keletal muscles are paralyzed. The muscles that support the back of the throat (the tongue i n particular) also relax during NREM sleep and are paralyzed in REM sleep and when this occu rs, the back of the throat collapses some. In some patients with a smaller back of the throa t, this can result in obstruction to the flow of air. This is fundamentally what occurs in O SA. This can cause repetitive obstruction to the flow of air all night long cause a person w ith JEANCARLOS to awaken repeatedly at night to "open" the back of the throat. If airflow is signif icantly restricted, blood oxygen levels can fall. The combination of the repetitive awakenin gs at night and low oxygen levels lead to numerous other physiologic abnormalities which can result in nocturia, nocturnal heartburn, night sweats, morning dry mouth, morning headache, and daytime fatigue/sleepiness. Additionally, JEANCARLOS can cause hypertension and it dramaticall y increases the risk of heart disease, heart attack, and stroke. It may play a causative rol e in obesity and AODM. Untreated JEANCARLOS also dramatically increases the risk of fall asleep car accidents. Treatment can help with all of these issues. The various forms of treatment of O SA were discussed with the patient including 1) Conservative therapy which typically include s weight loss, avoidance of sleep deprivation, avoidance of alcohol, avoidance of sedative m edications, avoidance of smoking, and positional therapy (non-supine sleeping); 2) Positive Airway Pressure therapy (which is effective in the vast majority of patients but compliance can be an issue); 3) Dental Appliance Therapy (which is effective for some patients, typical ly with mild JEANCARLOS, but compliance is typically good); 4) Expiratory Positive Airway Pressure - which involves passively increasing EPAP pressures applying a "one-way" valve type device (that looks like a "bandaid") over the nares at night which can be effective for very mild O SA; 5) Surgical intervention - including Phase I surgery (which typically involves T&A, UPPP , Genioglossus Advancement, Hyoid Suspension) and Phase II surgery (Bimandibular-Maxillary F acial Advancement) - the surgical solution to JEANCARLOS is complicated and typically involves alberto ral operations; and 6) Hypoglossal Nerve Stimulation Therapy. AODM: Treating JEANCARLOS, if present, can help with AODM Morbid Obesity: The bidirectional relationship between obesity and JEANCARLOS was discussed. Peter ght loss can help with JEANCARLOS and it can also help with diabetic control. Plan: Home Sleep Apnea Test (Type 3) with f/u thereafter. Today, 45 minutes was spent face to face with the patient; the majority of time was spent c andrenseling regarding JEANCARLOS. imon, Maximo Robledo Jr., MD - 03/20/2016 10:59 AM PDTFormatting of this note might be different from the origin al. 03/20/16 1000 Cool Depression Inventory-II Depression Score 12 - Minimal depression Insomnia Severity Index Insomnia Severity Index 16 Marengo Sleepiness Scale Sitting and reading 0 Watching TV 0 Sitting, inactive in a public place (e.g. a theatre or a meeting) 0 As a passenger in a car for an hour without a break 1 Lying down to rest in the afternoon when circumstances permit 1 Sitting and talking to someone 0 Sitting quietly after a lunch without alcohol 0 In a car, while stopped for a few minutes in traffic 0 Total score 2 SF-36v2 Score PF 53.71 RP 52.66 BP 46.68 GH 40.35 VT 49.63 SF 47.31 RE 45.72 MH 43.02 PCS 51.42 MCS 43.23 documented in th is encounter Plan of Treatment + + +--------+ + + | Name | Type | Priori | Associated Diagnoses | Order Schedule | | | | ty | | | + + +--------+ + + | Ambulatory Referral | Outpatient | Routin | JEANCARLOS (obstructive | Ordered: 03/20/2016 | | to Sleep Studies | Referral | e | sleep apnea) | | + + +--------+ + + documented as of this encounter Visit Diagnoses + + | Diagnosis | + + | JEANCARLOS (obstructive sleep apnea) - Primary Obstructive sleep apnea (adult) (pediatric) | + + | Obesity, unspecified obesity severity, unspecified obesity type | + + | Type 2 diabetes mellitus without complication (HCC) | + + documented in this encounter
--- OUTSIDE RECORDS SUMMARY | ~2020-01-05 | XMS | Encounter Summary ---
Demographics + + + | Address | [address] | | | [place] [address] | + + + | Home Phone | | + + + | Preferred Language | Unknown | + + + | Marital Status | Single | + + + | Muslim Affiliation | Unknown | + + + | Race | Unknown | + + + | Ethnic Group | Unknown | + + + Author + + + | Author | [facility] | | | and Tonana | + + + | Organization | [facility] | | | and Tonana | [...] Team Providers + +------+ + | Care Agricultural Education Professor Name | Role | Phone | + [...] Medicine | JEANCARLOS | Maximo Robledo | [address] | | | Required | | (obstructive | MD Marlen Olivera | [place] | | | | | sleep | João Ayers | [place], | | | | | apnea) | [facility] | [place] [address] | | | | | Procedures | [facility], [place] | Phone: | | | | | [place] SLEEP | [address] | [phone] | | | | | STUDY, | Phone: | Fax: | | | | | UNATTENDED, | [phone] | [phone] | | | | | SIMUL RECORD | Fax: | | | | | | HR/O2 | [phone] | | | | | | SAT/RESP [...] | Sleep | sleep apnea | [place] [address] | MD Jarod [address] | | | | Medicine / | (adult) | [facility]ATED | João Ayers | | | | Sleep | (pediatric) | WAY | [facility] | | | | Medicine | CONSULT PW | [place], | [place], [place] | | | | | Procedures | [place] [address] | [address] Phone: | | | | | NEW PATIENT | Phone: | [phone] | | | | | | [phone] | Fax: | | | | | | Fax: | [phone] | | | | | | [phone] | | +--------+--------+ + + + + Encounter Details +--------+---------+ + + + | Date | Type | Department | Care Team | Description | +--------+---------+ + + + | 03/20/ | Office | [facility] | Maximo Murguia | JEANCARLOS (obstructive | | 2016 | Visit | SLEEP DISORDER [address] | MD Jarod [address] | sleep apnea) | | | | [address] [place] | [address] [place] | (Primary Dx); | | | | [place] [address] | [place] [address] | Obesity, unspecified | | | | [phone] | [phone] | obesity severity, | | | | | | unspecified obesity | | | | | | type; Type 2 | | | | | | diabetes mellitus | | | | | | without complication | | | | | | ([facility]) | +--------+---------+ + + + Social History [...] the night, making your sleep fragmentedwith a biodiesel division manager stage of sleep. Even though you do not remember waking up many times during the night to a biodiesel division manager sleep, you fee l tired the next [...] the airway when you re asleep. The [employer]. [address] [place] [address]. All righ ts reserved. This information is [...] may a lso have help from a microbiology technician. At bedtime you plug the sensors [...] be the right ones for you. [employer]. [address] [place] [address]. All righ ts reserved. This information is [...] can open the airway to reduce sleep director of casino ea. Moving the jaw forward Most mouthpieces move the jaw and tongue forward. That keeps the tongue from blocking the a irway. Mouthpieces can work well, but they are not for everyone. Work with your healthcare p moraima to get a mouthpiece that fits just right for you. Oral appliances are usually custom made for you by a dental professional. And, avoid oxox-mrp-bwyrfxc mouthpieces they oft en do not work. [...] your mouthpiece, store it in its case. [id number] [employer]. [address] [place] [address]. All righ ts reserved. This information is not intended as a substitute for professional medical care. Always follow your healthcare professional's instructions. documented in this encounter Progress Notes Maximo Murguia Jr., MD - 03/20/2016 11:11 AM PDTFormatting of this note might be differen t from the original. Lenore Portillo [facility] [place] [address] Ref: Seng Knowles PA-C CC: Chief Complaint Patient presents with Consult Snoring History of the Present Illness:This is a 35 year old male who is referred for sleep medicin e consultation by Satnam Knowles PA-C because of possible obstructive sleep apnea. Other signifi cant medical issues include AODM, Obesity. The patient's records ([facility]) are reviewed. The patient is interviewed and examined. He works at [employer] from 10am-6pm. Bedtime is usually about 11pm [...] N/A Years of Education: 12 Occupational History [employer] Social History Main Topics Smoking status: Never [...] Review: The score of 2 on the Omro Sleepiness scale suggests insignifican t excessive daytime [...] Insomnia Severity Index Insomnia Severity Index 16 Omro Sleepiness Scale Sitting and reading 0 Watching [...]
--- OUTSIDE RECORDS SUMMARY | ~2020-01-05 | XMS | Encounter Summary ---
Demographics + + + | Address | [address] | | | [place] [address] | + + + | Home Phone | | + + + | Preferred Language | Unknown | + + + | Marital Status | Single | + + + | Synagogue Affiliation | Unknown | + + + | Race | Unknown | + + + | Ethnic Group | Unknown | + + + Author + + + | Author | [facility] | | | and Tonana | + + + | Organization | [facility] | | | and Tonana [...] Team Providers + +------+ + | Care Insulating Machine Operator Name | Role | Phone | + +------+ + | Seng Knowles PA-C | PCP | | + +------+ + Reason for Visit +---------+--------+ + | Reason | Onset | Comments | | | Date | | +---------+--------+ + | No Show | 10/22/ | | | | 2017 | | +---------+--------+ + Encounter Details +--------+ + + + + | Date | Type | Department | Care Team | Description | +--------+ + + + + | 10/22/ | Telephone | [facility] | Hong Shirley PA | No Show | | 2018 | | SLEEP DISORDER [address] | [address] | | | | | [address] [place] | [place], [place] | | | | | [place] [address] | [address] | | | | | [phone] | | | +--------+ + + + [...] + + documented as of this encounter Miscellaneous Notes Telephone Encounter - Hong Shirley PA - 11/06/2017 2:36 PM Maribell was last seen in our office on 07/23/2016. We were not able to schedule him for his next follow up because he has not returned messages left for him on three occasions. He has mild apnea. He was doing we ll with his CPAP compliance at his last appointment. We will not attempt to reschedule this appointment. We will follow up with him at his request. COLLEEN Erickson elephon e Encounter - Azalea Milian Mill Laborer - 11/05/2017 10:27 AM PDTCalled patient and lef t a message to call us back. Electronically signed by Hoang Berger at 11/05 10:27 AM PDTTelephone Encounter - Azalea Milian Medical Assistant - 10/30/2017 12:51 PM PDTCalled patient and left a message to call us back. elephone Encounter - Azalea Milian Medical Marina tant - 10/22/2017 2:11 PM PDTCalled patient to schedule his no show 10/21/2017 with KIERAN Suarez am for his one year follow up and left a message to call us back. documented in this encounter Plan of Treatment Not on filedocumented as of this encounter Visit Diagnoses Not on filedocumented in this encounter"
--- OUTSIDE RECORDS SUMMARY | ~2020-01-05 | XMS | Encounter Summary ---
Demographics + + + | Address | [address] | | | [place] [address] | + + + | Home Phone | | + + + | Preferred Language | Unknown | + + + | Marital Status | Single | + + + | Zoroastrianism Affiliation | Unknown | + + + | Race | Unknown | + + + | Ethnic Group | Unknown | + + + Author + + + | Author | [facility] | | | and Tonana | + + + | Organization | [facility] | | | and Tonana [...] Team Providers + +------+ + | Care Cat Cracker Operator Name | Role | Phone | + +------+ + | Seng Knowles PA-C | PCP | | + +------+ + Reason for Visit Evaluate & Treat (Routine) +--------+ + + [...] Medicine | JEANCARLOS | Maximo Robledo | [address] | | | Required | | (obstructive | MD Marlen Olivera | [place] | | | | | sleep | João Ayers | [place], | | | | | apnea) | [facility] | [place] [address] | | | | | Procedures | [facility], [place] | Phone: | | | | | [place] SLEEP | [address] | [phone] | | | | | STUDY, | Phone: | Fax: | | | | | UNATTENDED, | [phone] | [phone] | | | | | SIMUL RECORD | Fax: | | | | | | HR/O2 | [phone] | | | | | | SAT/RESP | | | | | | | FLOW/RESP | | | | | | | EFF HST | | | | | | | Scheduled on | | | | | | | 04/03 | | | | | | | (Mary) | | | +--------+ + + + + + Encounter Details +--------+ + + + + | Date | Type | Department | Care Team | Description | +--------+ + + + + | 04/03/ | Hospital | [facility] | Maximo Murguia | JEANCARLOS (obstructive | | 2016 - | Encounter | MED CTR SLEEP | MD Jarod [address] [place] [address] | sleep apnea) | | | | CENTER [address] | [address] [place] | (Primary Dx) | | 04/04/ | | [place] | [place] [address] | | | 2015 | | [address] | [phone] | | | | | [phone] | | | +--------+ + + + [...] + + documented as of this encounter Medications at Time of Discharge + + + +---------+--------+ + | Medication | Sig | Dispensed | Refills | Start | End Date | | | | | | Date | | + + + +---------+--------+ + | metFORMIN | Take 500 mg by mouth | | 0 | | | | (GLUCOPHAGE) 500 mg | daily (with | | | | | | tablet | breakfast). | | | | | + + + +---------+--------+ + | naproxen | Take 500 mg by mouth | | 0 | | | | (NAPROSYN) 500 mg | 2 times daily (with | | | | | | tablet | breakfast & | | | | | | | dinner). | | | | | + + + +---------+--------+ + documented as of this encounter Procedure Notes Maximo Murguia Jr., MD - 04/04/2016 11:59 PM PDTProcedure(s): [place] [address] HOME SLEEP TEST -TYPE 3Pre-Procedure Diagnose(s): JEANCARLOS (obstructive sleep apnea)Post-Procedure Diagnose(s): O SA (obstructive sleep apnea) Lenore Portillo [facility] [place] [address] Unattended, Multiparameter, Sleep Apnea Test for Allen Colby performed on 6 Identifying Information: Allen Colby is a 35 y.o. male who is referred for unatten ded, multi-parameter, sleep apnea test because of probable Obstructive Sleep Apnea. Technical Information: The study was performed on 04/03/2016 using the [employer] Nomad eq uipment with Polysmith Version 9 Software. The study was hand scored and hand analyzed. The following physiologic parameters were monitored: snoring, body position, oxygen saturation, heart rate, nasal airflow (PTAF), oral airflow (thermister) and thoracic and abdominal effor t (RIP belts). EEG was not monitored and thus sleep staging was not performed. A sleep effic iency of 100% was assumed for the purposes of calculating indices; this assumption can resul t in a significant underestimation of disease severity. Because EEG was not monitored, Respi ratory Effort Related Arousals could not be enumerated; this can also result in underestimat ion of disease severity. The sensitivity for Obstructive Sleep Apnea of this type of study i s high but the specificity is low. Definitions (The AASM Manual for the Scoring of Sleep and Associated Events, Version 2.3; 2 016): Apnea: There is a drop in the peak signal excursion by 90% or greater of pre-event baselin e using an oronasal thermal sensor, or an alternative apnea sensor and the duration of the 9 0% or greater drop in sensor signal is greater than or equal to 10 seconds. Obstructive Apnea: Event associated with continued or increased inspiratory effort throug hout the entire period of absent airflow. Central Apnea: Event associated with absent inspiratory effort throughout the entire carson od of absent airflow. Because EEG is not monitored, Central Apneas cannot be scored with any degree of reliability on this type of sleep study. Mixed Apnea: Event associated with absent inspiratory effort in the initial portion of th e event followed by resumption of inspiratory effort during the second portion of the event. Because EEG is not monitored, mixed apneas are not reliably scored on this type of study. Hypopnea: The peak signal excursions drop by 30% or more of pre-event baseline using nasal pressure (diagnostic study), PAP device flow (titration study), or an alternative hypopnea sensor (diagnostic study). The duration of the 30% or greater drop in signal excursion must last for 10 seconds or longer. The event is associated with a 3%. Respiratory Event Related Arousal: Because EEG is not recorded, Respiratory Event Related Arousal's cannot be enumerated. Results: Data collection commenced at 2123 hundred hours on 04/03/2016 and data collection t erminated at 0634 hundred hours on 04/04/2016. During the 551 minutes of index study time the re were 0 obstructive apneas, 0 central apneas, 0 mixed apneas and 91 hypopneas. The AHI was 9.9 which is elevated. The respiratory events occasioned a nichole oxygen saturation of 86% a nd the patient spent 32.3 minutes with an oxygen saturation of less than 90%. The heart rate averaged in the 60's. In addition to the scored events, numerous subcriteria events (low fl ow but without significant oxygen desaturation, snoring) were noted. Interpretation: This unattended, multiparameter, sleep apnea test is abnormal because of th e following: Obstructive Sleep Apnea is diagnosed and it is associated with mild oxygen desaturation. Suggestions: Consideration should be given to treating Obstructive Sleep Apnea Maximo Murguia Jr., MD, [facility] Garage Door Technician Lenore [facility] [place], [place] Clinical video production engineer [place], [place] docum ented in this encounter Plan of Treatment Not on filedocumented as of this encounter Procedures + +--------+ + + + | Procedure Name | Priori | Date/Time | Associated Diagnosis | Comments | | | ty | | | | + +--------+ + + + | SLEEP STUDY HOME | Routin | 04/09/2016 | | | | SLEEP TEST | e | 12:53 PM | | | | | | PDT | | | + +--------+ + + + documented in this encounter Visit Diagnoses + + | Diagnosis | + + | JEANCARLOS (obstructive sleep apnea) - Primary Obstructive sleep apnea (adult) (pediatric) | + + documented in this encounter"
--- OUTSIDE RECORDS SUMMARY | ~2020-01-05 | XMS | Encounter Summary ---
Demographics + + + | Address | [address] | | | [place] [address] | + + + | Home Phone | | + + + | Preferred Language | Unknown | + + + | Marital Status | Single | + + + | Sabianist Affiliation | Unknown | + + + | Race | Unknown | + + + | Ethnic Group | Unknown | + + + Author + + + | Author | [facility] | | | and Tonana | + + + | Organization | [facility] | | | and Tonana | [...] Team Providers + +------+ + | Care Pencil Sorter Name | Role | Phone | + +------+ + | Seng Knowles PA-C | PCP | | + +------+ + Reason for Visit +--------+ + | Reason | Comments | +--------+ + | Other | sleep results | +--------+ + Evaluate & Treat (Routine) +--------+--------+ + [...] | | Sleep | sleep apnea | [place] [address] | MD Jarod [address] | | | | Medicine / | (adult) | [facility]ATED | João Ayers | | | | Sleep | (pediatric) | WAY | [facility] | | | | Medicine | HST | [place], | [place], [place] | | | | | Procedures | [place] [address] | [address] Phone: | | | | | OFFICE VISIT | Phone: | [phone] | | | | | REGULAR | [phone] | Fax: | | | | | | Fax: | [phone] | | | | | | [phone] | | +--------+--------+ + + + + Encounter Details +--------+---------+ + + + | Date | Type | Department | Care Team | Description | +--------+---------+ + + + | 05/01/ | Office | [facility] | Maximo Murguia | JEANCARLOS (obstructive | | 2016 | Visit | SLEEP DISORDER [address] | MD Jarod [address] [place] | sleep apnea) | | | | [address] [place] | [address] [place] | (Primary Dx) | | | | [place] [address] | [place] [address] | | | | | [phone] | [phone] | | | | | | | | +--------+---------+ + + + Social History [...] + + + | Blood Pressure | 124/70 | 05/01/2016 2:10 PM | | | | | PDT | | + + + + + | Pulse | 96 | 05/01/2016 2:10 PM | | | | | PDT | | + + + + + | Temperature | - | - | | + + + + + | Respiratory Rate | 16 | 05/01/2016 2:10 PM | | | | | PDT | | + + + + + | Oxygen Saturation | 92% | 05/01/2016 2:10 PM | | | | | PDT | | + + + + + | Inhaled Oxygen | - | - | | | Concentration | | | | + + + + + | Weight | 139.4 kg (307 lb 4.8 | 05/01/2016 2:10 PM | | | | oz) | PDT | | + + + + + | Height | - | - | | + + + + + | Body Mass Index | 44.09 | 03/20/2016 10:52 AM | | | | | PDT | | + + + + + documented in this encounter Patient Instructions Patient Instructions Maximo Murguia Jr., MD - 05/01/2016 2:37 PM PDTFormatting of this n ote might be different from the original. Continuous Positive Airway Pressure (CPAP) Your healthcare provider has prescribed continuous positive airway pressure (CPAP) therapy for you. A CPAPdevice helps you breathe better at night. The device sends air through your nose or mouth when you breathe in to keep your air passages open. CPAP is: Used most often to treat sleep apnea and some other problems. (Sleep apnea is a chronic condition with periods of sleep in which you briefly stop breathing.) Safe and very effective. But it takes time to get used to the mask. Your healthcare provider, nurse, or medical supplier will give you tips for wearing and car ing for your CPAP device. General guidelines Recommendations include the following: It's very important not togive up! It takes time to get used to wearing the mask at [facility]. Practice using your CPAP device during the day, especially whenever you take a nap. Remember, there are several different types of masks. If you can t get used to your ma sk, ask your provider or medical supply company about trying another style. If you have nasal stuffiness or dryness when using your CPAP device, talk with your prov ider or medical supply company. There are ways to ease these problems. For example, your pro vider may recommend using a moistening nasal spray. Or the medical supply [employer] may recomm end a device with a humidifier. The goal is to use yourCPAP all night, every night, during all naps, and even when you travel. Keep your mask clean. Wash it with soap and water. Be sure to rinse the mask and tubing well with water to remove any soap. Let them air-dry completely before using. Make yourself comfortable when sleeping with CPAP. Try using extra pillows. Work with your medical supply company so that you know how to correctly use your CPAP. The company's student services representative will be able to help you: Use the CPAP correctly Troubleshoot any problems that come up Learn to clean and maintain the device Adjust to regular use of the CPAP The CPAP device settings are given as centimeters of water, or cm/H2O. Each person s pres sure settings are different. Your healthcare provider will tell you what settings to use. Ne meryl change your CPAP pressure setting unless your provider tells you to. CPAP cm/H20 pressure when you breathe in 0907-8056 [employer]. [address] [place] [address], [place] [address]. All righ ts reserved. This information is not intended as a substitute for professional medical care. Always follow your healthcare professional's instructions. documented in this encounter Progress Notes Maximo Murguia Jr., MD - 05/01/2016 11:41 AM PDTThe patient comes in for follow-up after undergoing home sleep apnea testing. My interpretation of the patient's sleep study, which I have reviewed with the patient, is as follows: Unattended, Multiparameter, Sleep Apnea Test for Allen Colby performed on 6 Identifying Information: Allen Colby is a 35 y.o. male who is referred for unatten ded, multi-parameter, sleep apnea test because of probable Obstructive Sleep Apnea. Technical Information: The study was performed on 04/03/2016 using the [employer] Nomad eq uipment with Polysmit24 Quan Version 9 Software. The study was hand [...] the peak signal excursion by 90% or great er of pre-event baseline using an oronasal thermal sensor, or an alternative apnea sensor an d the duration of the 90% or greater drop in sensor signal is greater than or equal to 10 se conds. Obstructive Apnea: Event associated with co ntinued or increased inspiratory effort throughout the entire period of absent airflow. Central Apnea: Event associated with absent inspiratory effort throughout the entire period of absent airflow. Because EEG is not monit ored, Central Apneas cannot be scored with any degree of reliability on this type of sleep s tudy. Mixed Apnea: Event associated with absent i nspiratory effort in the initial portion of the event followed by resumption of inspiratory effort during the second portion of the event. Because EEG is not monitored, mixed apneas ar e not reliably scored on this type of study. Hypopnea: The peak signal excursions drop by 30% or more of pre-french nt baseline using nasal pressure (diagnostic study), PAP device flow (titration study), or a n alternative hypopnea sensor (diagnostic study). The duration of the 30% or greater drop in signal excursion must last for 10 seconds or longer. The event is associated with a 3%. Respiratory Event Related Arousal: Because EEG is not recorded, Res piratory Event Related Arousal's cannot be enumerated. Results: [...] be given to treating Obstructive Sleep Apnea BP 124/70 mmHg | Pulse 96 | Resp 16 | Wt 139.39 kg (307 lb 4.8 oz) | SpO2 92% A: JEANCARLOS: The patient has obstructive sleep apnea and this is associated with oxygen desatura tion. I have reviewed this with him. I am advising CPAP therapy. He is in agreement with this. P: Resmed AirSense 10 autoset CPAP 6-20cm is prescribed. F/u 10 days after getting CPAP [facility]. Today, 15 minutes was spent face to face with the patient; the majority of time was spent c calli regarding JEANCARLOS and CPAP. documented in th is encounter Plan of Treatment Not on filedocumented as of this encounter Visit Diagnoses + + | Diagnosis | + + | JEANCARLOS (obstructive sleep apnea) - Primary Obstructive sleep apnea (adult) (pediatric) | + + documented in this encounter"
--- OUTSIDE RECORDS SUMMARY | ~2020-01-05 | XMS | Encounter Summary ---
Demographics + + + | Address | [address] | | | [place] [address] | + + + | Home Phone | | + + + | Preferred Language | Unknown | + + + | Marital Status | Single | + + + | Adventism Affiliation | Unknown | + + + | Race | Unknown | + + + | Ethnic Group | Unknown | + + + Author + + + | Author | [facility] | | | and [place] | + + + | Organization | [facility] | | | and Tonana [...] Team Providers + +------+ + | Care Job Honer Name | Role | Phone | + [...] | Sleep | sleep apnea | PA-C [address] | MD Jarod [address] | | | | Medicine / | (adult) | [facility] | João Ayers | | | | Sleep | (pediatric) | WAY | [facility] | | | | Medicine | HST | [place], | [place], [place] | | | | | Procedures | [place] [address] | [address] Phone: | | | | | OFFICE VISIT | Phone: | [phone] | | | | | REGULAR | [phone] | Fax: | | | | | | Fax: | [phone] | | | | | | [phone] | | +--------+--------+ + + + + Encounter Details +--------+---------+ + + + | Date | Type | Department | Care Team | Description | +--------+---------+ + + + | 05/01/ | Office | [facility] | Maximo Murguia | JEANCARLOS (obstructive | | 2016 | Visit | SLEEP DISORDER 401 | MD Jarod [address] [place] | sleep apnea) | | | | [address] [place] | [address] [place] | (Primary Dx) | | | | [place] [address] | [place] [address] | | | | | [phone] | [phone] | | | | | | | [...] get used to wearing the mask at [facility]. Practice using your CPAP device during the [...] moistening nasal spray. Or the medical supply [employer] may recomm end a device with a [...] to correctly use your CPAP. The company's public utilities sales representative will be able to help you: [...] CPAP cm/H20 pressure when you breathe in 2712-1280 [employer]. [address] [place] [address], [place] [address]. All righ ts reserved. This information is [...] study was performed on 04/03/2016 using the [employer] Nomad eq uipment with PolysmitInfoRemate Version 9 Software. The study was hand [...]
--- OUTSIDE RECORDS SUMMARY | ~2020-01-05 | XMS | Encounter Summary ---
Demographics + + + | Address | [address] | | | [place] [address] | + + + | Home Phone | | + + + | Preferred Language | Unknown | + + + | Marital Status | Single | + + + | Bahai Affiliation | Unknown | + + + | Race | Unknown | + + + | Ethnic Group | Unknown | + + + Author + + + | Author | [facility] | | | and [place] | + + + | Organization | [facility] | | | and [place]ana | [...] Team Providers + +------+ + | Care Stoneworking Sander Name | Role | Phone | + +------+ + | Seng Knowles PA-C | PCP | | + +------+ + Reason for Visit + + + | Reason | Comments | + + + | CPAP Follow Up | | + + + Evaluate & Treat (Routine) +--------+--------+ + + + + | Status | Reason | Specialty | Diagnoses / | Referred By | Referred To | | | | | Procedures | Contact | Contact | +--------+--------+ + + + + | Closed | | Physician | Diagnoses | Eleni, | Hong Shirley | | | | Prepleater / | Obstructive | Thea Woodard, COLLEEN [address] | | | | Sleep | sleep apnea | [place] [address] | [address] | | | | Medicine | (adult) | [place] | [place], | | | | | (pediatric) | WAY | [place] [address] | | | | | 3 weeks | [place], | Phone: | | | | | bring | [place] [address] | [phone] | | | | | equip/YELLOW | Phone: | Fax: | | | | | [place]? | [phone] | [phone] | | | | | Procedures | Fax: | | | | | | [place] | [phone] | | +--------+--------+ + + + + Encounter Details +--------+---------+ + + + | Date | Type | Department | Care Team | Description | +--------+---------+ + + + | 07/23/ | Office | [facility] | Hong Shirley PA | JEANCARLOS on CPAP (Primary | | 2017 | Visit | SLEEP DISORDER [address] | [address] | Dx) | | | | [address] [place] [address] [place] | [place] | | | | | [place] [address] | [address] | | | | | [phone] | | | +--------+---------+ + + + [...] + documented in this encounter Progress Notes Hong Shirley PA - 07/23/2016 3:01 PM PST Subjective: Patient ID: Allen Colby is a 36 y.o. male. HPI last office visit: 05/21/2016 date of HST: 04/03/2016 AHI: 9.9 RDI: O2%: 86% with 32.3 minutes below 90% Machine type: ResMed AirSense 10 Mask type: ResMed AirFit F10 full face mask DME: [place] in [place] pressure: 6-20 cm Median: 8.2 cm 95%: 10.9 cm maximum: 12.0 cm Nights using CPAP: 51/64 % of nights >4 hours: 67% average usage (all nights): 6:16 average usage (nights used): 7:53 AHI: 0.3 [place] comes in for CPAP compliance. He is doing pretty well with his CPAP, wearing it regul ger for the duration of his sleep. He has had some nights that he has fallen asleep withou t putting on his mask. This is not happening very often, but he does not sleep as well with out it. When sleeping without his CPAP, he is waking with a sore throat and he doesn't feel as rested the following day. When using CPAP, he is not needing as much sleep and feels mo re rested. It is slowly developing into a regular part of his sleep routine. He is comfor table with his current settings and is comfortable making adjustments to the settings, if ne cessary. I have discussed the download in detail. This shows that his sleep apnea is controlled, wi th an AHI of 0.3. It also shows that his leaks are controlled. It shows that he is wearing his CPAP >4 hours for 86% of the nights during 30 consecutive nights. BP 144/70 mmHg | Pulse 90 | Resp 16 | Wt 139.073 kg (306 lb 9.6 oz) | SpO2 97% Review of Systems Objective: Physical Exam Assessment: Problem #1: OBSTRUCTIVE SLEEP APNEA (SAA13-L60.33) This is controlled with CPAP. He is doing well with his CPAP compliance. He has used his CPAP >4 hours for 86% of the nights for 30 consecutive nights. Plan: 1. He is to continue with CPAP indefinitely. 2. Touch base with medical supplier twice per year to ensure that all equipment is satisfa ctory. I will follow up again in 1 year, sooner prn. At that time we will reassess with all appro priate paperwork. Twenty-five minutes were spent [id number], with the majority of time sp ent in counseling. Hong Shirley PA-C cc: Seng Knowles PA-C documented in this enco unter Plan of Treatment Not on filedocumented as of this encounter Visit Diagnoses + + | Diagnosis | + + | JEANCARLOS on CPAP - Primary Obstructive sleep apnea (adult) (pediatric) | + + documented in this encounter"
--- OUTSIDE RECORDS SUMMARY | ~2020-01-05 | XMS | Encounter Summary ---
Demographics + + + | Address | [address] | | | [place] [address] | + + + | Home Phone | | + + + | Preferred Language | Unknown | + + + | Marital Status | Single | + + + | Restorationism Affiliation | Unknown | + + + | Race | Unknown | + + + | Ethnic Group | Unknown | + + + Author + + + | Author | [facility] | | | and [place] | + + + | Organization | [facility] | [...] Team Providers + +------+ + | Care Mva Still Operator Name | Role | Phone | [...] | SLEEP DISORDER [address] | [address] | | | | | [address] [place] | [place] | | | | | [place] [address] | [id number] | | | | | [phone] | | | +--------+ + + + [...]
--- OUTSIDE RECORDS SUMMARY | ~2020-01-05 | XMS | Encounter Summary ---
Demographics + + + | Address | [address] | | | [place] [address] | + + + | Home Phone | | + + + | Preferred Language | Unknown | + + + | Marital Status | Single | + + + | Yarsani Affiliation | Unknown | + + + | Race | Unknown | + + + | Ethnic Group | Unknown | + + + Author + + + | Author | [facility] | | | and [place] | + + + | Organization | [facility] | | | and [place]ana [...] Team Providers + +------+ + | Care Mat Machine Tender Name | Role | Phone | + [...] + | 10/22/ | Telephone | [facility] | Hong Shirley PA | No Show | | 2018 | | SLEEP DISORDER [address] | [address] | | | | | [address] [place] [place] | [place], [place] | | | | | [place] [address] | [address] | | | | | [phone] | | | +--------+ + + + [...] Erickson elephon e Encounter - Azalea Milian Metal Hanging Supervisor - 11/05/2017 10:27 AM PDTCalled patient and [...]
--- OUTSIDE RECORDS SUMMARY | ~2020-01-05 | XMS | Encounter Summary ---
Demographics + + + | Address | [address] | | | [place] [address] | + + + | Home Phone | | + + + | Preferred Language | Unknown | + + + | Marital Status | Single | + + + | Druze Affiliation | Unknown | + + + | Race | Unknown | + + + | Ethnic Group | Unknown | + + + Author + + + | Author | [facility] | | | and [place] | + + + | Organization | [facility] | [...] Team Providers + +------+ + | Care Substation Designer Name | Role | Phone | + [...] | 05/21/ | Clinical | [facility] [place] [facility] | Maximo Murguia | JEANCARLOS (obstructive | | 2016 | Support | SLEEP DISORDER [address] | MD Jarod [address] | sleep apnea) | | | | [address] [place] | [address] [place] | (Primary Dx) | | | | [place] [address] | [place] [address] | | | | | [phone] | [phone] | | | | | | | [...] in this encounter Progress Notes Johny Wright StARTinitiative Tech - 05/21/2016 1:47 PM PSTFormatting of [...] Murguia. PAP was ordered on 05/01/2016 from [facility] and patient has been wear ing for [...]
--- OUTSIDE RECORDS SUMMARY | ~2020-01-05 | XMS | Encounter Summary ---
Demographics + + + | Address | [address] | | | [place] [address] | + + + | Home Phone | | + + + | Preferred Language | Unknown | + + + | Marital Status | Single | + + + | Oriental Orthodox Affiliation | Unknown | + + + | Race | Unknown | + + + | Ethnic Group | Unknown | + + + Author + + + | Author | [facility] | | | and [place] | + + + | Organization | [facility] | | | and [place] [...] Team Providers + +------+ + | Care Forging Die Sinker Name | Role | Phone | + +------+ + PCP | Unavailable | + +------+ + Encounter Details +--------+ + + + + | Date | Type | Department | Care Team | Description | +--------+ + + + + | 01/09/ | Hospital | [facility] | Conversion | | | 2004 - | Encounter | CENTER SURGICAL [address] | Transaction, | | | | | [address]ODAS | Provider Unknown | | | 01/10/ | | [place] | [phone] | | | 2004 | | [address] | | | | | | [phone] | | | +--------+ + + + [...]
--- OUTSIDE RECORDS SUMMARY | ~2020-01-05 | XMS | Encounter Summary ---
Demographics + + + | Address | [address] | | | [place] [address] | + + + | Home Phone | | + + + | Preferred Language | Unknown | + + + | Marital Status | Single | + + + | Latter-Day Affiliation | Unknown | + + + | Race | Unknown | + + + | Ethnic Group | Unknown | + + + Author + + + | Author | [facility] | | | and [place] | + + + | Organization | [facility] | | | and [...] Team Providers + +------+ + | Care Livestock Laborer Name | Role | Phone | + [...] Medicine | JEANCARLOS | Maximo Robledo | [place] [address] | | | Required | | (obstructive | MD Marlen Olivera | [place] | | | | | sleep | João Ayers | [place], | | | | | apnea) | [facility] | [place] [address] | | | | | Procedures | [facility], [place] | Phone: | | | | | [place] SLEEP | [address] | [phone] | | | | | STUDY, | Phone: | Fax: | | | | | UNATTENDED, | [phone] | [phone] | | | | | SIMUL RECORD | Fax: | | | | | | HR/O2 | [phone] | | | | | | SAT/RESP [...] + + | 04/03/ | Hospital | [facility] | Maximo Murguia | JEANCARLOS (obstructive | | 2016 - | Encounter | MED CTR SLEEP | MD Jarod [address] [place] [address] | sleep apnea) | | | | CENTER [address] [place] | [address] [place] | (Primary Dx) | | 04/04/ | | [place] | [place] [address] | | | 2015 | | [address] | [phone] | | | | | [phone] | | | +--------+ + + + [...] Jr., MD - 04/04/2016 11:59 PM PDTProcedure(s): [place] [address] HOME SLEEP TEST -TYPE 3Pre-Procedure Diagnose(s): JEANCARLOS (obstructive sleep apnea)Post-Procedure Diagnose(s): O SA (obstructive sleep apnea) Lenore Portillo [facility] [place] [address] Unattended, Multiparameter, Sleep Apnea Test for Allen Colby performed on 6 Identifying Information: Allen Colby is a 35 y.o. male who is referred for unatten ded, multi-parameter, sleep apnea test because of probable Obstructive Sleep Apnea. Technical Information: The study was performed on 04/03/2016 using the [employer] Nomad eq uipment with Polysmith Version 9 [...] Obstructive Sleep Apnea Maximo Murguia Jr., MD, [facility] Shaping Machine Tender Lenore [facility] [place], [place] Clinical cellular equipment repairer [place], [place] docum ented in this encounter Plan [...]
--- OUTSIDE RECORDS SUMMARY | ~2020-01-05 | XMS | Encounter Summary ---
Demographics + + + | Address | [address] | | | [place] [address] | + + + | Home Phone | | + + + | Preferred Language | Unknown | + + + | Marital Status | Single | + + + | Protestant Affiliation | Unknown | + + + | Race | Unknown | + + + | Ethnic Group | Unknown | + + + Author + + + | Author | [facility] | | | and [place] | + + + | Organization | [facility] | | | and [place] [...] Team Providers + +------+ + | Care Tree Inspector Name | Role | Phone | + [...] | Hong Shirley | | | | Housing And Residence Life Director / | Obstructive | Thea Woodard, COLLEEN [address] | | | | Sleep | sleep apnea | [place] [address] | [address] | | | | Medicine | (adult) | [place] | [place], | | | | | (pediatric) | WAY | [place] [address] | | | | | 3 weeks | [place], | Phone: | | | | | bring | [place] [address] | [phone] | | | | | equip/YELLOW | Phone: | Fax: | | | | | [place]? | [phone] | [phone] | | | | | Procedures | Fax: | | | | | | [place] | [phone] | | +--------+--------+ + + + + Encounter Details +--------+---------+ + + + | Date | Type | Department | Care Team | Description | +--------+---------+ + + + | 07/23/ | Office | [facility] | Hong Shirley PA | JEANCARLOS on CPAP (Primary | | 2017 | Visit | SLEEP DISORDER [address] | [address] | Dx) | | | | [address] [place] | [place] | | | | | [place] [address] | [address] | | | | | [phone] | | | +--------+---------+ + + + [...] ResMed AirFit F10 full face mask DME: [place] [facility] [place] pressure: 6-20 cm Median: 8.2 cm 95%: 10.9 cm maximum: 12.0 cm Nights using CPAP: 51/64 % of nights >4 hours: 67% average usage (all nights): 6:16 average usage (nights used): 7:53 AHI: 0.3 [place] comes in for CPAP compliance. He is [...] Exam Assessment: Problem #1: OBSTRUCTIVE SLEEP APNEA (WPN83-V69.33) This is controlled with CPAP. He is [...] appro priate paperwork. Twenty-five minutes were spent yewk-[id number]-fbed, with the majority of time sp ent [...]
--- OUTSIDE RECORDS SUMMARY | ~2020-01-05 | XMS | Clinical Summary ---
Demographics + + + | Address | [address] | | | [place] [address] | + + + | Home Phone | | + + + | Preferred Language | Unknown | + + + | Marital Status | Single | + + + | Synagogue Affiliation | Unknown | + + + | Race | Unknown | + + + | Ethnic Group | Unknown | + + + Author + + + | Author | [facility] | | | and [place] | + + + | Organization | [facility] | | | and [place] [...] Team Providers + +------+ + | Care Maintenance Craftsman Name | Role | Phone | + [...] +--------+ +--------+-------+---------+--------+ | BCBS | BCBS | [id number] | 07/01/19 | | | PPO | | | [place] | | 16-Pre | | | | | | L FEP | | sent | | | | + +--------+ +--------+-------+---------+--------+ | [facility] | IHS | [id number] | | | | Indemn | | [...] Person | Self | [birth year] | [address] | | | al/Fam | | 1980 | [phone] | [place] [address] | | | mat | | | 9 (Home) | | + +--------+ +--------+ + + Advance Directives + + + + + | Type | Date Recorded | Patient | Explanation | | | | Corrections Corporal | | + + + + + | Power of | | | | | Boat Builder And Repairer | | | | + + + + + | Advance | | | | | Directive | | | | + + + + +
[~2020-01-05 18:40] MED LIST changes: +COLCHICINE0.6 M1 PO; +FENOFIBRATE54 MG PO; +IBUPROFEN600 MG PO; +LOSARTAN POTASS50 MG PO; +METFORMIN HCL500 M1 PO
--- NOTE | 2020-01-05 20:11 | EKG ---
[facility] [address] [place], [place] [address] Signed Sinus tachycardia Cannot rule out Inferior infarct , age undetermined Abnormal ECG No previous ECGs available Confirmed by HALLE MURRELL MD ([id number]) on 01/05/2020 8:11:10 PM Electronically Signed By: HALLE MURRELL MD 01/05/202010 PATIENT NAME: JEOVANNY BASURTO Electrocardiogram DATE OF : [birth year] PHYSICIAN: HALLE MURRELL MD REPORT #: [id number] REPORT IS CONFIDENTIAL AND NOT TO BE RELEASED WITHOUT AUTHORIZATION
--- NOTE | 2020-01-05 22:30 | NUR ---
pt ARRIVES TO CCU VIA STRETCHER WITH RN. AIRBORNE PRECAUTIONS UTILIZED. AMBULATORY FROM STRETCHER TO HOSPITAL BED. 2L OXYGEN BY NC IN PLACE, SPO2 WNL. pt DENIES SOB AT THIS TIME. ORIENTATION TO ROOM PROVIDED. ICE WATER, PERSONAL SUPPLIES IN REACH. IV SITES SL WNL. pt DENIES ANY CHEST PAIN, NAUSEA. CALL LIGHT IN REACH.
--- NOTE | 2020-01-05 23:40 | NUR ---
pt RESTING IN BED WATCHING TV. SPO2 93% ON 2L OXYGEN BY NC, HR 104. LIGHTS OFF IN ROOM.
--- NOTE | 2020-01-06 00:30 | NUR ---
PHONE CALL FROM pt'S MOM NESTOR, QUESTIONS ANSWERED, UPDATED ON pt STATUS.
--- NOTE | 2020-01-06 01:46 | NUR ---
pt LYING ON RIGHT SIDE, BREATHING UNLABORED, RR 24, SPO2 WNL ON 2L OXYGEN BY NC. LIGHTS OFF IN ROOM.
--- NOTE | 2020-01-06 03:49 | NUR ---
pt RESTING IN BED ON BACK. BREATHING UNLABORED, RR 26. 2L OXYGEN BY NC IN PLACE, HR 100. LIGHTS OFF IN ROOM.
--- NOTE | 2020-01-06 04:20 | NUR ---
CALL LIGHT ANSWERED. ICE WATER, HOT TEA PROVIDED REQUESTED. pt COUGHING, DRY, NON-PRODUCTIVE COUGH. C/O 6/10 SCHREIBER, PRN TYLENOL ADMINISTERED. TEMPERATURE 99.6 [place]. DENIES SOB. SITTING UP IN BED WATCHING TV AT THIS TIME. CALL LIGHT IN REACH.
--- NOTE | 2020-01-06 06:22 | NUR ---
IN pt ROOM FOR LAB DRAW. pt AWAKENS TO RN ENTERING ROOM. HOT TEA PROVIDED, pt STATES TEA HELPED COUGH, THROAT IRRITATION. URINAL EMPTIED. LABS DRAWN AND SENT TO LAB BY THIS RN. pt PROVIDED WITH SLEEP MASK, CURTAINS DRAWN. 2L OXYGEN BY NC IN PLACE, SPO2 96%. AFEBRILE AT THIS TIME.
[2020-01-06] MEDS ORDERED: GLIPIZIDE XL10 MG PO (08:27)
[2020-01-06] MEDS ORDERED: ONGLYZA5 MG PO (08:28)
--- NOTE | 2020-01-06 08:28 | NUR ---
IN PATIENT'S ROOM TO GIVE AM MEDS AND BREAKFAST. PT STATES HE IS FEELING BETTER BUT STILL HAVING A SINUS HEADACHE. PT UP TO SIDE OF BED TO START EATING BREAKFAST BUT STARTS COUGHING, COUGHING SO HARD THAT HE STARTS TO BECOME NAUSEOUS AND DRY HEAVING/COUGHING CONTINUOUSLY. ZOFRAN GIVEN. HR UP TO 120-130s NOW WITH DRY HEAVING. COLD WASH CLOTH TO BACK OF NECK. CBG 203 AND 3 UNITS TO BE GIVEN.
--- NOTE | 2020-01-06 09:45 | NUR ---
Spoke with pt by phone as he is pending covid. Pt states he lives in [place] in a 1 story home with 2 steps. He lives with his grandmother and assists her as she had an IA a few years ago. He states she is capable of caring for herself, but he likes to help her. He states he is a diabetic and has had a harsh cough. States if he is covid +, he has a place to go away from his grandmother. He does not state where. He states he does have people who could assist him. Will follow up when labs completed.
--- NOTE | 2020-01-06 10:44 | NUR ---
PATIENT RESTING ON HIS RIGHT SIDE AT THIS TIME SLEEPING. PT WANTING THE ROOM TO REMAIN DARK AT TIHS TIME HE WAS WANTING TO SLEEP SOME MORE. SP02 95% ON 2 L NC. PATIENT LOOKS COMFORTABLE. HR IN THE 90s.
--- NOTE | 2020-01-06 12:30 | NUR ---
MED REC COMPLETE
--- NOTE | 2020-01-06 12:35 | NUR ---
IN PATIENT'S ROOM FOR ASSESSMENT AND VITALS. LUNCH ORDERED FOR PATIENT. PATIENT WANTING TO KNOW WHEN HE CAN HAVE THE COUGH MEDICINE AGAIN. PATIENT WAS ABLE TO FINALLY REST THIS AM AFTER TAKING THAT. UP TO CHAIR NOW. INTO BATHROOM TO VOID. CBG 210 AND COVERED WITH 3 UNITS HUMALOG. PT WANTING TO KNWO EXPECTED LENGTH OF STAY IN HOSPTIAL - DISCUSSED. CONTINUE TO MONITOR.
--- NOTE | 2020-01-06 12:46 | NUR ---
PATIENT NOW IN CHAIR FOR LUNCH. PATIENT ASKING FOR MORE COUGH MEDICINE. BROUGHT INTO ROOM AND WILL GIVE SOON POSSIBLE. HR IN THE 110s. PT VOIDS ANOTHER 225 ML CONCENTRATED URINE AND ABLE TO HAVE A BM. CONTINUE TO MONITOR.
--- NOTE | 2020-01-06 15:42 | NUR ---
DR. MURRELL IN ROOM TO SEE PATIENT AND NOTIFIES PATIENT THAT HE IS POSITIVE FOR COVID-19. PATIENT CALLS HIS MOTHER AND INFORMS HER. PT AGREEABLE TO DO TRIAL MEDICATION OF REMDESIVIR. PATIENT SIGNS CONSENT FORM. HR IN THE 110-120s. PT STANDS TO VOID. TEMP 99.2 AT THIS TIME.
--- NOTE | 2020-01-06 16:29 | NUR ---
PATIENT'S OXYGEN TURNED UP TO 4 L PER RT DUE TO PATIENT DESATURATING AND HAVING SOME BRONCHOSPASM-LIKE COUGHING. PT REMAINS ON 4 L NOW AND SP02 IS CURRENTLY 94%.
--- NOTE | 2020-01-06 17:56 | NUR ---
PATIENT STATES HIS FOOD WAS DRY AND NOT VERY GOOD FOR DINNER. PATIENT GIVEN 3 UNITS INSULIN FOR CBG 197. PATIENT UP TO BATHROOM TO HAVE A BM. PT STATES, "I HAVE MY SENSE OF TASTE AND SMELL BACK NOW." REMDESIVIR INFUSION COMPLETE. CONTINUE TO MONITOR.
--- NOTE | 2020-01-06 21:00 | NUR ---
PATIENT PROVIDED WITH EVENING MEDS. PATIENT HAS BEEN COUGHING, REQUESTING PRN ROBITUSSIN. WHICH IT IS NOT TIME FOR YET. PATIENT APPEARS ANXIOUS. ASK TO HAVE THE BLINDS OPEN. STATES "I JUST FEEL TRAPPED AND HOPELESS IN HERE". PATIENT CONCERNS WITH HIS CONDITION, OFFERED REASSURANCE. PRN ATIVAN GIVEN. EDUCATION PROVIDED, PATIENT VERBALIZED UNDERSTANDING. TOLERATING 4L NC. VS WNL. PATIENT VOIDED, URINE IS DAXA COLORED. PATIENT SITTING UP AT THE EDGE OF THE BED. DENIES ANY FURTHER NEEDS AT THIS TIME. CALL LIGHT IN REACH.
--- NOTE | 2020-01-06 22:31 | NUR ---
2210 PATIENT PROVIDED WITH PRN ROBITUSSIN. PATIENT IS COUGHING. MAINTAIN O2 SATS >90% ON 4L. 2230 PATIENT CONTINUES TO HAVE SOME COUGHING FITS. STATES "IT SETTLING DOWN NOW". HR ELEVATED TO 130-140'S. O2 SATS 88-90% ON 4L. RR 28-30. MONITORING GRAZYNA.
--- NOTE | 2020-01-06 23:00 | NUR ---
PATIENT CONTINUES TO COUGH FREQUENTLY. O2 SATS 88-90% ON 4L NC. RR 30'S. HR ELEVATED TO 120-130. DISCUSSED WITH . ORDERS RECEIVED FOR ONE TIME DOSE OF ATIVAN. HOLD NEB TREATMENT UNLESS O2 SATS DO NOT IMPROVE.
--- NOTE | 2020-01-06 23:20 | NUR ---
PATIENT PROVIDED WITH ONE TIME DOSE OF ATIVAN. PATIENT DENIES FEELING SOB, STATES "IT'S JUST ANNOYING" ABOUT THE FREQUENT COUGHING. PATIENT COUGHS SO HARD IT APPEARS HE MAY VOMIT, WHICH HE DOES NOT. PATIENT HAS PINK/RED SPUTUM HE IS COUGHING UP. HUMIDIFICATION PLACED ON O2, TITRATED TO 6L NC. ENCOURAGED PATIENT TO LAY IN WHATEVER POSITION IS COMFORTABLE, BUT ENCOURAGED SIDE LAYING OR PRONE. PATIENT VERBALIZED UNDERSTANDING. ORAL TEMP ELEVATED, PRN TYLENOL GIVEN.
--- NOTE | 2020-01-07 00:10 | NUR ---
PATIENT CONTINUES TO COUGH FREQUENTLY. HR 115. RR 30-40'S. O3 SAT 87% ON 6L NC WITH GOOD WAVE FORM. DISCUSSED WITH . KYLEE SCHMITT AND MEENA BROWN.
--- NOTE | 2020-01-07 01:00 | NUR ---
PATIENT PROVIDED WITH NEB TREATMENT, LASIX AND MEENA ESPARZA. PATIENT'S AXILLARY TEMP 102.0 F. O2 SAT 87% PRIOR TO NEB ON 6L NC, 94% POST TREATMENT. PATIENT REPORTS SOME RELIEF WITH HIS BREATHING. COUGHING CONTINUES TO INCLUDE PINK TINGED SPUTUM.
--- NOTE | 2020-01-07 04:30 | NUR ---
PATIENT REQUESTING PRN COUGH MEDS. PATIENT HAS DIFFICULTY CATCHING HIS BREATH AND APPEARS VERY ANXIOUS. PATIENT UP TO THE BEDSIDE. O2 SATS >90% ON 6L NC. ROBITUSSIN AND PRN ATIVAN PROVIDED. PATIENT ABLE TO RECOVER AFTER SEVERAL MINS. PATIENT APPEARS TIRED. PATIENT LAYS BACK SO THAT LABS CAN BE DRAWN. GRUNTING/WHEEZING HEARD THROUGH NURSE WEARING PAPR. BREATHING APPEARS LABORED. O2 SAT 93% ON 6L NC, RR 37. ORAL TEMP 99.1 F.
--- NOTE | 2020-01-07 07:21 | NUR ---
PATIENT HAVING INCREASED FITS OF COUGHING, DIFFICULTLY SPEAKING. O2 SAT 80'S WITH 6L NC. RT CALLED FOR NEB TREATMENT.
--- NOTE | 2020-01-07 07:30 | NUR ---
Update from Dr. Monroe as pt is having bronchospasms and not feeling well. Discussed in IDT.
--- NOTE | 2020-01-07 08:32 | NUR ---
pt awake and oriented x4. pt appears fatigued, however able to stand to void at bedside and reposition self in bed. pt reports generalized discomfort /, 650 mg po tylenol given. pt has persistant cough, tessalon pearls and robitussin given. pt take po meds easily. iv sites are intact, no swelling or redness noted at either site, fluids and flushes infuse easily. pt reports mild nausea, and also orders hasbrowns for breakfast. 4 mg iv zofran given.
--- NOTE | 2020-01-07 10:32 | NUR ---
PT GIVEN IV MEDICATIONS. 1 MG PO ATIVAN GIVEN FOR PT REPORTED ANXIETY. PT ABLE TO TAKE PO MED AND THEN BACK ON CPAP. PT APPEARS TO BE ABLE TO REST, AND WORK OF BREATHING IS DECREASED WITH CPAP IN PLACE.
--- NOTE | 2020-01-07 10:52 | NUR ---
PT C/O HEADACHE 12/08 AT THIS TIME, ICE PACK PROVIDED, PT HAS ALREADY HAD 650 MG PO TYLENOL THIS AM. WILL CONTINUE TO MONITOR. IV SITES ARE INTACT, NO REDNESS OR SWELLING NOTED, FLUIDS AND FLUSHES INFUSE EASILY. PT MOSTLY SLEEPING AT THIS TIME WITH CPAP IN PLACE.
--- NOTE | 2020-01-07 14:08 | NUR ---
PT STANDING AT THE BEDSIDE TO VOID. BP IS LOWER THAN AVERAGE, AT 100/84 ON LEFT ARM AND 108/51 ON RT ARM. PT DENIES FEELING NAUSEA AND CHEST PAIN. PT REPORTS "I FEEL LIKE I AM GETTING TOO MUCH AIR NOW", O2 SATS WITH CPAP IN PLACE ARE 94-97%. PT ONLY ABLE TO VOID 275 ML CONCENTRATED URINE, FIRST VOID SINCE 0830 THIS MORNING. ENCOURAGED PO INTAKE OF FLUID.
--- NOTE | 2020-01-07 14:35 | NUR ---
PT GIVEN PO TYLENOL AND PO ROBITUSSEN FOR GENERALIZED DISCOMFORT AND PERSISTANT COUGH.
--- NOTE | 2020-01-07 14:45 | NUR ---
UPDATING PT MOTHER, MRS.SANDRA DONAHUE ON PT GENERAL STATUS. SHE WISHES TO GET AND UPDATE FROM SOMETIME TODAY. PHONE # IS [phone]
--- NOTE | 2020-01-07 14:55 | NUR ---
CALLED TO UPDATE ON PT STATUS, BP LOWER THAN BASELINE, DECREASED URINE OUTPUT, BOUNDING PULSES IN BILAT FEET AND SOFTER PULSES IN BILAT ARMS, POOR PO INTAKE OF FLUIDS. NO NEW ORDERS AT THIS TIME.
--- NOTE | 2020-01-07 15:27 | NUR ---
UPDATED VIA PHONE ON PT STATUS, LUKASZ FROM RT ALSO ABLE TO GIVE PT UPDATE. NEW ORDERS TO BE GIVEN SOON. ABG ORDERED. IN ROUTE TO SEE PT.
--- NOTE | 2020-01-07 15:57 | NUR ---
TO THE UNIT TO SEE PT.
--- NOTE | 2020-01-07 19:41 | NUR ---
pt sedated and intubated by Holly BUTCHER and resp therapy Nicholas with assistance from Prieto NOLAN at approximatly 1645. Report given back to this RN at approximatly 1725 after art line had been placed. pt on propofol drip for sedation at 50 mcg/kg. pt has restraints in place. at about 1745 pt becoming more restless, appears to be fighting the tube, order given by Dr. Grayson to increase the propofol drip to 60mcg/kg. pt o2 sats beginning to drop, called for resp therapy. additional nursing staff called into the room at this time. suctioned pt with yonkar, moderate clear secretions removed, elevated the HOB. pt continues to struggle with tube, called Dr. Grayson for pain medication to assist with pt compliance. pt given multiple doses of pain medication, and propofol drip titrated up to 75 mcg/kg in attempt to improve pt tollerance. pt continues to desat. [facility] crew here to transport pt to [facility]. pt postioned to prone for transport, o2 sats immediatly improved with change in position up to 95%. pt personal belongings sent with pt. called mother Kalpana Mccartney to update to pt destination and status at time of transfer.
== END 2020-01-07 19:00 | disposition short-term general hospital (02) | DRG 177 ==
LOC: ED 18:40 → CCU 21:02
PROVIDERS: ADMIT Internal Medicine
PROC: 0BH17EZ Insertion of Endotracheal Airway into Trachea, Via Natural or Artificial Opening (ICD-10-PCS; principal; 2020-01-07)
PROC: 5A09357 Assistance with Respiratory Ventilation, Less than 24 Consecutive Hours, Continuous Positive Airway Pressure (ICD-10-PCS; 2020-01-07)
DX: U07.1 COVID-19 (principal); J96.01 Acute respiratory failure with hypoxia; J12.89 Other viral pneumonia; E11.9 Type 2 diabetes mellitus without complications; I10 Essential (primary) hypertension; E78.5 Hyperlipidemia, unspecified; R74.0 Nonspecific elevation of levels of transaminase and lactic acid dehydrogenase [LDH]; E87.6 Hypokalemia; E83.42 Hypomagnesemia; E66.9 Obesity, unspecified; Z68.36 Body mass index [BMI] 36.0-36.9, adult; Z79.899 Other long term (current) drug therapy; Z79.84 Long term (current) use of oral hypoglycemic drugs
CPT/HCPCS: 31500; 36600; 71045; 80048; 80053; 81001; 82803; 83605; 83735; 85025; 93005; 93010; 94002; 94640; 94660; 94667; 94668; 96361; 96365; 96375; 99285-25; C9803; J0330; J0456; J0696; J1100; J1650; J1815; J1940; J2060; J2250; J2370; J2405; J2704; J3475; J7030; J7050; J7060; U0002

== ENCOUNTER 2020-09-12 18:05 | Emergency (ER) | payer BC, OTHER ==
[~2020-09-12] VITALS: Ht 177.8 cm; Wt 115.6 kg
[~2020-09-12 18:05] MED LIST changes: +GLIPIZIDE XL10 MG PO; +ONGLYZA5 MG PO
== END 2020-09-12 22:09 | disposition home or self-care (01) ==
LOC: ED 18:05
DX: R53.83 Other fatigue (principal); R06.00 Dyspnea, unspecified; D72.829 Elevated white blood cell count, unspecified; E11.9 Type 2 diabetes mellitus without complications; Z79.84 Long term (current) use of oral hypoglycemic drugs
CPT/HCPCS: 71046; 80053; 81001; 83690; 84484; 85025; 99285-25

== ENCOUNTER 2021-02-12 11:41 | Emergency (ER) | payer BC, OTHER ==
[~2021-02-12] VITALS: Ht 177.8 cm; Wt 115.6 kg
--- OUTSIDE RECORDS SUMMARY | 2021-02-12 11:44 | XMS ---
PreManage Notification: JEOVANNY BASURTO [employer] Commander Events No recent Security Events currently on file CRITERIA MET - [facility] CARE PROVIDERS [facility] MURRELL Internal Medicine Current PHONE: Unknown BETHANY JAIN [facility] 01/08/2020-Current PHONE: [phone] Roger has no Care Guidelines for this patient. Mal VISIT COUNT (12 MO.) Madison Márquez TOTAL 2 NOTE: Visits indicate total known visits. ED/UCC VISIT TRACKING (12 MO.) 02/12/2021 11:41 [facility] [place] TYPE: Emergency COMPLAINT: - ABD PAIN 09/12/2020 18:06 [facility] [place] TYPE: Emergency COMPLAINT: - DIZZINESS DIAGNOSES: - Elevated white blood cell count, unspecified - Dyspnea, unspecified - Dizziness and giddiness - Type 2 diabetes mellitus without complications - [facility] (current) use of oral hypoglycemic drugs - Other fatigue INPATIENT VISIT TRACKING (12 MO.) No inpatient visits to display in this time frame [email or web address]
[2021-02-12] MEDS ORDERED: LOSARTAN POTASS50 MG PO (11:52)
== END 2021-02-12 14:24 | disposition home or self-care (01) ==
LOC: ED 11:41
DX: R10.31 Right lower quadrant pain (principal); R10.13 Epigastric pain; E11.9 Type 2 diabetes mellitus without complications; Z79.899 Other long term (current) drug therapy; Z79.84 Long term (current) use of oral hypoglycemic drugs
CPT/HCPCS: 74177; 80053; 81001; 83690; 85025; 96375; 99284-25; J1170; J2405; Q9967

== ENCOUNTER 2021-07-14 10:24 | Emergency (ER) | payer BC, OTHER ==
[~2021-07-14] VITALS: Ht 177.8 cm; Wt 115.6 kg
[2021-07-14] MEDS ORDERED: METHOCARBAMOL750 MG PO (11:11)
== END 2021-07-14 11:15 | disposition home or self-care (01) ==
LOC: ED 10:24
DX: S16.1XXA Strain of muscle, fascia and tendon at neck level, initial encounter (principal); R22.0 Localized swelling, mass and lump, head; E11.9 Type 2 diabetes mellitus without complications; Z79.84 Long term (current) use of oral hypoglycemic drugs; Z79.899 Other long term (current) drug therapy; W22.8XXA Striking against or struck by other objects, initial encounter
CPT/HCPCS: 99283

== ENCOUNTER 2021-08-07 11:11 | Emergency (ER) | payer BC, OTHER ==
[~2021-08-07 11:11] MED LIST changes: +METHOCARBAMOL750 MG PO
--- OUTSIDE RECORDS SUMMARY | 2021-08-07 11:18 | XMS ---
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 Care History Medical/Surgical 02/13/2021 [facility] - PATIENT IS [facility] ELIGIBLE, \T\middot;\T\nbsp; PLEASE REFER PATIENT TO [facility] FOR NON EMERGENT MEDICAL NEEDS. \T\middot;\T\nbsp; [facility] CAN SEE PATIENTS SAME DAY FOR APTS IF PATIENT CALLS FIRST THING IN THE MORNING. E.D. VISIT COUNT (12 MO.) [address] [facility] TOTAL 4 NOTE: Visits indicate total known visits. ED/UCC VISIT TRACKING (12 MO.) 08/07/2021 11:11 [facility] [place] TYPE: Emergency COMPLAINT: - FLU SYMPTOMS (INFUSION) 07/14/2021 10:24 [facility] [place] TYPE: Emergency COMPLAINT: - NECK PAIN DIAGNOSES: - [facility] (current) use of oral hypoglycemic drugs - Localized swelling, mass and lump, head - Type 2 diabetes mellitus without complications - Other residential (current) drug therapy - Strain of muscle, fascia and tendon at neck level, initial encounter - Striking against or struck by other objects, initial encounter - Unspecified injury of head, initial encounter 02/12/2021 11:41 [facility] [place] TYPE: Emergency COMPLAINT: - ABD PAIN DIAGNOSES: - Other long term care pharmacist (current) drug therapy - Epigastric pain - long term care pharmacist (current) use of oral hypoglycemic drugs - Right lower quadrant pain - Type 2 diabetes mellitus without complications 09/12/2020 18:06 [facility] [place] TYPE: Emergency COMPLAINT: - DIZZINESS DIAGNOSES: - Elevated white blood cell count, unspecified - Dyspnea, unspecified - Dizziness and giddiness - Type 2 diabetes mellitus without complications - long term care pharmacist (current) use of oral hypoglycemic drugs - Other fatigue INPATIENT VISIT TRACKING (12 MO.) No inpatient visits to display in this time frame [email or web address]
== END 2021-08-07 13:56 | disposition home or self-care (01) ==
LOC: ED 11:11
DX: U07.1 COVID-19 (principal); Z23 Encounter for immunization; E11.9 Type 2 diabetes mellitus without complications; I10 Essential (primary) hypertension; Z79.84 Long term (current) use of oral hypoglycemic drugs; Z79.899 Other long term (current) drug therapy
CPT/HCPCS: 99283-25; M0247

== ENCOUNTER 2024-04-13 13:33 | Emergency (ER) | payer OTHER, BC ==
[~2024-04-13] VITALS: Ht 177.8 cm; Wt 104.3 kg
[~2024-04-13 13:33] MED LIST changes: +BUPROPION HCL150 M2 PO; +HYDROCODON-ACE1 EA11 PO; +OZEMPIC1 MG/0.71 SUB-Q
[2024-04-13] MEDS ORDERED: KETOROLAC TROMETHAMINE 60 MG/2 ML VIAL IM ONE (14:30)
[2024-04-13] MEDS ORDERED: predniSONE 20 MG TAB PO ONE (14:30)
[2024-04-13] MEDS ORDERED: CYCLOBENZAPRINE HCL 10 MG TAB PO ONE (15:30)
[2024-04-13] MEDS ORDERED: LIDOCAINE HCL 4% 1 EACH PATCH TD ONE (15:30)
[2024-04-13] MEDS ORDERED: OXYCODONE/APAP 5/325 TAB PO ONE (15:30)
[2024-04-13] MEDS ORDERED: PERCOCET 5-3251 EACH PO (16:03)
[2024-04-13] MEDS ORDERED: CYCLOBENZAPRINE10 MG PO (16:03)
[2024-04-13] MEDS ORDERED: LIDODERM1 EACH TOP (16:03)
[2024-04-13 16:15] VITALS: BP 133/78
[2024-04-13] MEDS ORDERED: LIDOCAINE PATCH REMOVAL 1 EA TD SCH (21:00)
== END 2024-04-13 16:15 | disposition home or self-care (01) ==
LOC: ED 13:33
DX: S49.91XA Unspecified injury of right shoulder and upper arm, initial encounter (principal); E11.9 Type 2 diabetes mellitus without complications; I10 Essential (primary) hypertension; Z86.16 Personal history of COVID-19; Z79.85 Long-term (current) use of injectable non-insulin antidiabetic drugs; Z79.84 Long term (current) use of oral hypoglycemic drugs; Z79.899 Other long term (current) drug therapy; X50.0XXA Overexertion from strenuous movement or load, initial encounter
CPT/HCPCS: 73030; 96372; 99283-25; A9270; J1885; J7512

== ENCOUNTER 2024-06-19 11:54 | Emergency (ER) | payer BC, OTHER ==
[~2024-06-19] VITALS: Ht 177.8 cm; Wt 104.6 kg
[~2024-06-19 11:54] MED LIST changes: +CYCLOBENZAPRINE10 MG PO; +LIDODERM1 EACH TOP
[2024-06-19] MEDS ORDERED: ONDANSETRON HCL4 MG PO (14:13)
[2024-06-19] MEDS ORDERED: INSULIN GL100 UNIT/2 SUB-Q (14:14)
[2024-06-19] MEDS ORDERED: VITAMIN D21250 MCG PO (14:14)
[2024-06-19] MEDS ORDERED: DIPHENOXYLATE/ATROPINE 1 EA TAB PO ONE (16:00)
[2024-06-19] MEDS ORDERED: SODIUM CHLORIDE 0.9% 1,000 ML IV ONE (16:00)
[2024-06-19] MEDS ORDERED: ondansetron HCL 4 MG/2 ML VIAL IV ONE (16:00)
[2024-06-19 17:32] LABS: INFLUENZA B NAA NEGATIVE (NEGATIVE); RESPIRATORY SYNCYTIAL VIR NAA NEGATIVE (NEGATIVE)
[2024-06-19 17:39] LABS: BILIRUBIN, URINE POSITIVE (negative); BLOOD/HGB, URINE NEGATIVE (Negative); KETONE, URINE NEGATIVE (Negative); LEUK ESTERASE, URINE NEGATIVE (negative); NITRITE, URINE NEGATIVE (negative)
[2024-06-19 18:34] LABS: BASOPHILS 0.8 % (0-2); EOSINOPHILS 1.6 % (0-6); HEMATOCRIT 44.5 % (35.0-50.0); HEMOGLOBIN 15.3 g/dL (12.0-18.0); LYMPHOCYTES 43.9 % (24-44); MCH 32.2 (27-36); MCHC 34.5 g/dl (30-36); MCV 93.3 fl (81-99); MONOCYTES 5.4 % (0-12); NEUTROPHILS 48.3 % (39-80); PLATELET COUNT 263 K/uL (140-440); RBC 4.77 M/ul (4.3-5.7); RDW 14.2 (10.5-15.0)
[2024-06-19 18:48] LABS: ALBUMIN 3.2 g/dL (3.4-5.0); ALBUMIN/GLOBULIN RATIO 0.8 (1.1-2.4); ANION GAP 11.8 (7-21); BILIRUBIN, TOTAL 0.4 ng/dL (0.2-1.0); BUN/CREATININE RATIO 10.97 (6.0-28.6); CALCIUM 8.6 mg/dL (8.5-10.1); CREATININE, SERUM 0.82 mg/dL (0.70-1.30); POTASSIUM 3.8 mmol/L (3.5-5.1); PROTEIN, TOTAL 7.2 g/dL (6.4-8.2)
[2024-06-19] MEDS ORDERED: LOMOTIL TABLET1 EACH PO (18:57)
[2024-06-19 19:09] VITALS: BP 121/78
== END 2024-06-19 19:09 | disposition home or self-care (01) ==
LOC: ED 11:54
PROVIDERS: Emergency Medicine
DX: R19.7 Diarrhea, unspecified (principal); E86.0 Dehydration; E11.9 Type 2 diabetes mellitus without complications; I10 Essential (primary) hypertension; Z86.16 Personal history of COVID-19; Z79.4 Long term (current) use of insulin; Z79.85 Long-term (current) use of injectable non-insulin antidiabetic drugs; Z79.84 Long term (current) use of oral hypoglycemic drugs; Z79.899 Other long term (current) drug therapy
CPT/HCPCS: 36415; 74176; 80053; 81003; 83690; 85025; 87502; 96360; 96361; 99284-25; J7030; U0002

== ENCOUNTER 2024-06-27 07:24 | Emergency (ER) | payer BC, OTHER ==
[~2024-06-27] VITALS: Ht 177.8 cm; Wt 103.0 kg
[~2024-06-27 07:24] MED LIST changes: +INSULIN GL100 UNIT/2 SUB-Q; +LOMOTIL TABLET1 EACH PO; +ONDANSETRON HCL4 MG PO; +VITAMIN D21250 MCG PO
[2024-06-27] MEDS ORDERED: SOD PHOSPHATE/SOD BIPHOSPHATE 132 ML BTL PR ONE ×2 (09:00→10:00)
[2024-06-27 11:36] VITALS: BP 135/74
== END 2024-06-27 11:15 | disposition home or self-care (01) ==
LOC: ED 07:24
DX: K56.41 Fecal impaction (principal); I10 Essential (primary) hypertension; E11.9 Type 2 diabetes mellitus without complications; Z79.899 Other long term (current) drug therapy; Z79.4 Long term (current) use of insulin; Z79.84 Long term (current) use of oral hypoglycemic drugs
CPT/HCPCS: 99283